=== PATIENT | female | born 1950 | race Hispanic/Latino ===

== ENCOUNTER 2019-02-17 12:24 | Inpatient (IN) | payer MEDICARE, OTHER ==
--- NOTE | 2019-02-17 12:29 | Event Note ---
ED Screening Note ED Screening Note: TO ER APPROX 1225 DIFFICULTY WORD FINDING LAST KNOWN NORMAL THIS AM- SHE GOT UP GOT DRESSED/BATHED ETC ALONE DAZED AND STARRING WHEN ASKED QUESTION SHE LOOKS IF SHE DOES NOT UNDERSTAND SUBTLE L SIDED FACIAL DROOP AMS LIVES WITH FAMILY PMH COPD ON 3 L NC AT HOME This initial assessment/diagnostic orders/clinical plan/treatment(s) is/are subject to change based on patients health status, clinical progression and re- assessment by fellow clinical providers in the ED. Further treatment and workup at subsequent clinical providers discretion. Patient/guardian urged not to elope from the ED as their condition may be serious if not clinically assessed and managed. Initial orders include:
--- NOTE | 2019-02-17 12:33 | Emergency Department Report ---
ED Neuro Deficit HPI - General Chief Complaint: Neuro Symptoms/Deficit Stated Complaint: POSS CVA Time Seen by Provider: 02/17/19 12:26 Source: patient Mode of arrival: Ambulatory Limitations: Other - History of Present Illness Initial Comments: 02/17/19 12:07 and is a 68-year-old female that presents emergency room with complaints of confusion and difficulty speaking and finding the words.. Patient is complaining of trouble talking and finding the words. Patient is also complaining of generalized weakness. Patient states she is drooling from her right face. Last known well time was approximately one hour ago. Patient at this time IS a&o 3. Sister is at bedside and states that the patient was riding in her car and was not on her oxygen when the patient is on home oxygen 3 L. -: Sudden Location: speech, right face Presenting Symptoms: Present: Facial Droop/Numbness, Unable to Speak Clearly, Altered Mental Status History of same: No Place: outdoors Severity: severe Quality: weak Improves With: none Worsens With: none On Anticoagulants: No Context: sudden onset Associated Symptoms: confusion, malise, shortness of breath, weakness. denies: chest pain, cough, diaphoresis, fever/chills, headaches, loss of appetite, nausea/vomiting, vertigo, seizures, syncope Treatments Prior to Arrival: oxygen - Related Data Allergies/Adverse Reactions: Allergies Allergy/AdvReac Type Severity Reaction Status Date / Time No Known Allergies Allergy Verified 02/17/19 12:25 ED Review of Systems ROS: Stated complaint: POSS CVA Other details as noted in HPI Constitutional: denies: chills, fever Eyes: denies: eye pain, eye discharge, vision change ENT: denies: ear pain, throat pain Respiratory: denies: cough, shortness of breath, wheezing Cardiovascular: denies: chest pain, palpitations Endocrine: no symptoms reported Gastrointestinal: denies: abdominal pain, nausea, vomiting, diarrhea Genitourinary: denies: urgency, dysuria, discharge Musculoskeletal: denies: back pain, joint swelling, arthralgia Skin: denies: rash, lesions Neurological: denies: headache, weakness, paresthesias Psychiatric: denies: anxiety, depression Hematological/Lymphatic: denies: easy bleeding, easy bruising ED Past Medical Hx - Past Medical History Previous Medical History?: Yes Hx Hypertension: Yes Hx Heart Attack/AMI: No Hx Congestive Heart Failure: No Hx Diabetes: No Hx Deep Vein Thrombosis: No Hx Renal Disease: No Hx COPD: Yes (on home O2, emphysema) Additional medical history: HOME 02 - Surgical History Past Surgical History?: No - Family History Family history: no significant - Social History Smoking Status: Former Smoker Substance Use Type: None ED Neuro Physical Exam - General Limitations: No Limitations, Other General appearance: alert, in no apparent distress Suspected Stroke: No - Head Head exam: Present: atraumatic, normocephalic - Eye Eye exam: Present: normal appearance - ENT ENT exam: Present: mucous membranes moist - Neck Neck exam: Present: normal inspection - Respiratory Respiratory exam: Present: normal lung sounds bilaterally. Absent: respiratory distress - Cardiovascular Cardiovascular Exam: Present: regular rate, normal rhythm. Absent: systolic murmur, diastolic murmur, rubs, gallop - GI/Abdominal GI/Abdominal exam: Present: soft, normal bowel sounds. Absent: distended, tenderness, guarding - Rectal Rectal exam: Present: deferred - Extremities Exam Extremities exam: Present: normal inspection - Back Exam Back exam: Present: normal inspection - Neurological Exam Neurological exam: Present: alert, oriented X3 - NIHSS Assessment Interval: Baseline 1a. Level of Consciousness: alert/keenly responsive 1b. LOC Questions: answers both correctly 1c. LOC Commands: performs tasks correctly 2. Best Gaze: normal 3. Visual: no visual loss 4. Facial Palsy: normal symmetrical movement 5b. Motor Arm Right: no drift 5a. Motor Arm Left: no drift 6a. Motor Leg Left: no drift 6b. Motor Leg Right: no drift 7. Limb Ataxia: absent 8. Sensory: normal 9. Best Language: no aphasia 10. Dysarthria: normal 11. Extinction/Inattention: no abnormality Total Score: 0 Stroke Severity: No Stroke Symptoms - Psychiatric Psychiatric exam: Present: normal affect, normal mood - Skin Skin exam: Present: warm, dry, intact, normal color. Absent: rash ED Course Vital Signs 02/17/19 02/17/19 02/17/19 12:43 12:45 12:50 Temperature 97.6 F Pulse Rate 74 Respiratory 16 Rate Blood Pressure 99/51 O2 Sat by Pulse 92 94 Oximetry 02/17/19 02/17/19 02/17/19 13:01 13:15 13:33 Temperature Pulse Rate 83 84 75 Respiratory 22 22 23 Rate Blood Pressure 99/51 118/55 O2 Sat by Pulse 95 97 93 Oximetry 02/17/19 02/17/19 02/17/19 13:45 14:00 14:15 Temperature Pulse Rate 82 85 83 Respiratory 21 22 21 Rate Blood Pressure 96/44 101/56 114/58 O2 Sat by Pulse 93 94 93 Oximetry 02/17/19 02/17/19 02/17/19 14:30 14:45 15:00 Temperature Pulse Rate 83 77 75 Respiratory 24 22 20 Rate Blood Pressure 119/54 123/53 123/53 O2 Sat by Pulse 93 97 95 Oximetry 02/17/19 02/17/19 02/17/19 15:15 15:30 15:45 Temperature Pulse Rate 78 77 83 Respiratory 20 21 21 Rate Blood Pressure 140/65 154/63 171/73 O2 Sat by Pulse 94 95 93 Oximetry 02/17/19 02/17/19 16:00 16:15 Temperature Pulse Rate 83 84 Respiratory 22 21 Rate Blood Pressure 170/70 158/75 O2 Sat by Pulse 93 93 Oximetry - Reevaluation(s) Reevaluation #1: Initial evaluation done. NIH is normal. Patient placed on oxygen. Patient also registered nurse cardiac telemetry. 02/17/19 13:01 Discussed all results with patient. Patient will be admitted to the hospitalist service. Patient agrees to plan of care. 02/17/19 16:01 - Consultations Consultation #1: I discussed the case with the neurologist and neurologist does not recommend TPA but recommends further neurologic workup and encephalopathy workup. 02/17/19 12:51 Consultation #2: Hospitalist consulted for admission. Hospitalist to admit patient. Hospitalist to assume care patient. 02/17/19 16:01 - Lab Data Result diagrams: 02/17/19 12:45 02/17/19 14:39 Lab Results 02/17/19 02/17/19 02/17/19 Range/Units 12:45 12:45 12:45 WBC 22.8 H (4.5-11.0) K/mm3 RBC 4.82 (3.65-5.03) M/mm3 Hgb 14.6 H (10.1-14.3) gm/dl Hct 43.7 H (30.3-42.9) % MCV 91 (79-97) fl MCH 30 (28-32) pg MCHC 33 (30-34) % RDW 13.4 (13.2-15.2) % Plt Count 512 H (140-440) K/mm3 Add Manual Diff Complete Total Counted 100 Seg Neuts % (Manual) 88.0 H (40.0-70.0) % Band Neutrophils % 0 % Lymphocytes % (Manual) 11.0 L (13.4-35.0) % Reactive Lymphs % (Man) 0 % Monocytes % (Manual) 1.0 (0.0-7.3) % Eosinophils % (Manual) 0 (0.0-4.3) % Basophils % (Manual) 0 (0.0-1.8) % Metamyelocytes % 0 % Myelocytes % 0 % Promyelocytes % 0 % Blast Cells % 0 % Nucleated RBC % Not Reportable Seg Neutrophils # Man 20.1 H (1.8-7.7) K/mm3 Band Neutrophils # 0.0 K/mm3 Lymphocytes # (Manual) 2.5 (1.2-5.4) K/mm3 Abs React Lymphs (Man) 0.0 K/mm3 Monocytes # (Manual) 0.2 (0.0-0.8) K/mm3 Eosinophils # (Manual) 0.0 (0.0-0.4) K/mm3 Basophils # (Manual) 0.0 (0.0-0.1) K/mm3 Metamyelocytes # 0.0 K/mm3 Myelocytes # 0.0 K/mm3 Promyelocytes # 0.0 K/mm3 Blast Cells # 0.0 K/mm3 WBC Morphology Not Reportable Hypersegmented Neuts Not Reportable Hyposegmented Neuts Not Reportable Hypogranular Neuts Not Reportable Smudge Cells Not Reportable Toxic Granulation Not Reportable Toxic Vacuolation Not Reportable Dohle Bodies Not Reportable Pelger-Huet Anomaly Not Reportable Anh Rods Not Reportable Platelet Estimate Consistent w auto Clumped Platelets Not Reportable Plt Clumps, EDTA Not Reportable Large Platelets Not Reportable Giant Platelets Not Reportable Platelet Satelliting Not Reportable Plt Morphology Comment Not Reportable RBC Morphology Normal Dimorphic RBCs Not Reportable Polychromasia Not Reportable Hypochromasia Not Reportable Poikilocytosis Not Reportable Anisocytosis Not Reportable Microcytosis Not Reportable Macrocytosis Not Reportable Spherocytes Not Reportable Pappenheimer Bodies Not Reportable Sickle Cells Not Reportable Target Cells Not Reportable Tear Drop Cells Not Reportable Ovalocytes Not Reportable Helmet Cells Not Reportable [place] Bodies Not Reportable [place] Rings Not Reportable Monserrat Cells Not Reportable Bite Cells Not Reportable Crenated Cell Not Reportable Elliptocytes Not Reportable Acanthocytes (Spur) Not Reportable Rouleaux Not Reportable Hemoglobin C Crystals Not Reportable Schistocytes Not Reportable Malaria parasites Not Reportable Dain Bodies Not Reportable Hem Pathologist Commnt No PT 11.5 L (12.2-14.9) Sec. INR 0.86 L (0.87-1.13) APTT 20.6 L (24.2-36.6) Sec. Thrombin Time 15.3 (15.1-19.6) Sec. Sodium (137-145) mmol/L Potassium (3.6-5.0) mmol/L Chloride (98-107) mmol/L Carbon Dioxide (22-30) mmol/L Anion Gap mmol/L BUN (7-17) mg/dL Creatinine (0.7-1.2) mg/dL Estimated GFR ml/min BUN/Creatinine Ratio % Glucose (65-100) mg/dL Calcium (8.4-10.2) mg/dL Total Bilirubin (0.1-1.2) mg/dL AST (5-40) units/L ALT (7-56) units/L Alkaline Phosphatase (35-129) units/L Total Creatine Kinase 58 (30-135) units/L CK-MB (CK-2) 5.7 H (0.0-4.0) ng/mL CK-MB (CK-2) Rel Index 9.8 H (0-4) Troponin T 0.037 H (0.00-0.029) ng/mL Total Protein (6.3-8.2) g/dL Albumin (3.9-5) g/dL Albumin/Globulin Ratio % 02/17/19 Range/Units 14:39 WBC (4.5-11.0) K/mm3 RBC (3.65-5.03) M/mm3 Hgb (10.1-14.3) gm/dl Hct (30.3-42.9) % MCV (79-97) fl MCH (28-32) pg MCHC (30-34) % RDW (13.2-15.2) % Plt Count (140-440) K/mm3 Add Manual Diff Total Counted Seg Neuts % (Manual) (40.0-70.0) % Band Neutrophils % % Lymphocytes % (Manual) (13.4-35.0) % Reactive Lymphs % (Man) % Monocytes % (Manual) (0.0-7.3) % Eosinophils % (Manual) (0.0-4.3) % Basophils % (Manual) (0.0-1.8) % Metamyelocytes % % Myelocytes % % Promyelocytes % % Blast Cells % % Nucleated RBC % Seg Neutrophils # Man (1.8-7.7) K/mm3 Band Neutrophils # K/mm3 Lymphocytes # (Manual) (1.2-5.4) K/mm3 Abs React Lymphs (Man) K/mm3 Monocytes # (Manual) (0.0-0.8) K/mm3 Eosinophils # (Manual) (0.0-0.4) K/mm3 Basophils # (Manual) (0.0-0.1) K/mm3 Metamyelocytes # K/mm3 Myelocytes # K/mm3 Promyelocytes # K/mm3 Blast Cells # K/mm3 WBC Morphology Hypersegmented Neuts Hyposegmented Neuts Hypogranular Neuts Smudge Cells Toxic Granulation Toxic Vacuolation Dohle Bodies Pelger-Huet Anomaly Anh Rods Platelet Estimate Clumped Platelets Plt Clumps, EDTA Large Platelets Giant Platelets Platelet Satelliting Plt Morphology Comment RBC Morphology Dimorphic RBCs Polychromasia Hypochromasia Poikilocytosis Anisocytosis Microcytosis Macrocytosis Spherocytes Pappenheimer Bodies Sickle Cells Target Cells Tear Drop Cells Ovalocytes Helmet Cells [place] Bodies [place] Rings [place] Cells Bite Cells Crenated Cell Elliptocytes Acanthocytes (Spur) Rouleaux Hemoglobin C Crystals Schistocytes Malaria parasites Dain Bodies Hem Pathologist Commnt PT (12.2-14.9) Sec. INR (0.87-1.13) APTT (24.2-36.6) Sec. Thrombin Time (15.1-19.6) Sec. Sodium 137 (137-145) mmol/L Potassium 4.0 (3.6-5.0) mmol/L Chloride 93.8 L (98-107) mmol/L Carbon Dioxide 31 H (22-30) mmol/L Anion Gap 16 mmol/L BUN 18 H (7-17) mg/dL Creatinine 1.1 (0.7-1.2) mg/dL Estimated GFR 49 ml/min BUN/Creatinine Ratio 16 % Glucose 147 H (65-100) mg/dL Calcium 9.8 (8.4-10.2) mg/dL Total Bilirubin 0.30 (0.1-1.2) mg/dL AST 16 (5-40) units/L ALT 16 (7-56) units/L Alkaline Phosphatase 85 (35-129) units/L Total Creatine Kinase (30-135) units/L CK-MB (CK-2) (0.0-4.0) ng/mL CK-MB (CK-2) Rel Index (0-4) Troponin T (0.00-0.029) ng/mL Total Protein 6.5 (6.3-8.2) g/dL Albumin 3.9 (3.9-5) g/dL Albumin/Globulin Ratio 1.5 % - EKG Data -: EKG Interpreted by Ca EKG shows normal: sinus rhythm, axis, intervals, QRS complexes, ST-T waves Rate: normal - Radiology Data Radiology results: report reviewed CT HEAD WITHOUT CONTRAST: FINDINGS: Images obtained show bilateral prominence of the sulci and ventricles. There are no abnormal intra- or extra-axial blood or fluid collections. There are no focal masses or evidence of mass effect. The barboza white matter differentiation appears within normal limits. Regions of periventricular decreased attenuation are consistent with microangiopathic ischemic disease. The posterior fossa structures including the fourth ventricle, cerebellum, and brainstem appear normal. IMPRESSION: Evidence of atrophy and microangiopathic ischemic disease. No acute intracranial process noted. AP CHEST: HISTORY: Weakness, hypoxia The lungs are mildly hyperinflated with increased interstitial markings. No consolidation, large mass or pleural effusion. No pneumothorax. Heart size is within normal limits. IMPRESSION: No acute cardiopulmonary process is identified. - Medical Decision Making Patient is a 68-year-old female that presents emergency with altered mental status and slurred speech and drooling. Neurologist was consulted immediately upon arrival. Neurologist did not recommend TPA recommends encephalopathy workup. Head CT negative for acute findings. Chest x-ray negative. Patient f ound to have lab own about a stroke include elevated white blood cell count, elevated troponin, acute renal insufficiency. Hospitalist admitted the patient. - Differential Diagnosis encephalopathy. Hypoxia. Confusion. Altered mental status Critical Care Time: Yes Critical care attestation.: If time is entered above; I have spent that time in minutes in the direct care of this critically ill patient, excluding procedure time. Critical Care Time: 45 minutes ED Disposition Clinical Impression: Weakness, Encephalopathy, Hypoxia, Slurred speech, Encephalopathy acute, Elevated troponin, Renal insufficiency Altered mental state Qualifiers: Altered mental status type: unspecified Qualified Code(s): R41.82 - Altered mental status, unspecified Elevated white blood cell count, unspecified Qualifiers: Leukocytosis type: unspecified Qualified Code(s): D72.829 - Elevated white blood cell count, unspecified Disposition: DC-09 OP ADMIT IP TO THIS HOSP Is pt being admited?: Yes Does the pt Need Aspirin: No Condition: Critical Time of Disposition: 16:03
--- NOTE | 2019-02-17 12:47 | Cat Scan Report ---
CT HEAD WITHOUT CONTRAST: HISTORY: Stroke. TECHNIQUE: Sequential CT images without contrast. FINDINGS: Images obtained show bilateral prominence of the sulci and ventricles. There are no abnormal intra- or extra-axial blood or fluid collections. There are no focal masses or evidence of mass effect. The barboza white matter differentiation appears within normal limits. Regions of periventricular decreased attenuation are consistent with microangiopathic ischemic disease. The posterior fossa structures including the fourth ventricle, cerebellum, and brainstem appear normal. IMPRESSION: Evidence of atrophy and microangiopathic ischemic disease. No acute intracranial process noted. These findings were discussed with Dr. Hirsch in the emergency department at 1237 hrs.
--- NOTE | 2019-02-17 12:48 | Emergency Department Report ---
ED Neuro Deficit HPI - General Chief Complaint: Neuro Symptoms/Deficit Stated Complaint: POSS CVA Time Seen by Provider: 02/17/19 12:26 Source: patient Mode of arrival: Ambulatory Limitations: Other - History of Present Illness Initial Comments: [facility] Date of Service: 02/17/19 Impression: Encephalopathy: Patient has some difficult with confusion but no aphasia. No focal deficits on neurologic exam. More likely a metabolic process but possibly TIA or seizure. - - - Not a tpa candidate due to: no focal deficits on exam. Presentation is not suggestive of Large Vessel Occlusive Disease. Thrombectomy would not be recommended. Comments: LKN: 10:00 Door time: 12:24 [employer] contacted: 12:30 [employer] at bedside: 12:32 NIHSS assessment time: 12:38 Recommendations: -ASA -Permissive htn up to 220/120 -Check Hgb A1c and lipid panel -dysphagia screen -Telemetry -Glucose control per primary team, avoid hypo- and hyperglycemia -DVT prophylaxis -PT/OT/Speech Inpatient neurology consultation Inpatient stroke evaluation as per Neurology/ Internal Medicine Discussed with ED MD Please call with questions Jeri Esteban, DO [employer] --------- CC word finding difficulty History of Present Illness 68 yo F who is presenting with trouble talking. She seemed spaced out and she wasn't answering. She was holding onto a door handle and not talking at all. Then she came back around and started answering again. Her sister went to get her oxygen because she has been getting a little spacy. Diagnostic: CT head: no acute process Exam: NIHSS score: 0 Medical Decision Making: - Extensive number of diagnosis or management options are considered above. - Extensive amount of complex data reviewed. - High risk of complication and/or morbidity or mortality are associated with differential diagnostic considerations above. - There may be Uncertain outcome and increased probability of prolonged functional impairment or high probability of severe prolonged functional impairment associated with some of these differential diagnosis. Medical Data Reviewed: 1.Data reviewed include clinical labs, radiology, Medical Tests; 2.Tests results discussed w/performing or interpreting physician; 3.Obtaining/reviewing old medical records; 4.Obtaining case history from another source; 5.Independent review of image, tracing or specimen. Patient was informed the Neurology Consult would happen via TeleHealth consult by way of interactive audio and video telecommunications and consented to receiving care in this manner. - Related Data Allergies/Adverse Reactions: Allergies Allergy/AdvReac Type Severity Reaction Status Date / Time No Known Allergies Allergy Verified 02/17/19 12:25 ED Review of Systems ROS: Stated complaint: POSS CVA Other details as noted in HPI ED Past Medical Hx - Past Medical History Additional medical history: HOME 02 ED Neuro Physical Exam - General Limitations: Other Suspected Stroke: No Critical care attestation.: If time is entered above; I have spent that time in minutes in the direct care of this critically ill patient, excluding procedure time. ED Disposition Clinical Impression: Encephalopathy acute Disposition: DC-09 OP ADMIT IP TO THIS HOSP Is pt being admited?: Yes Condition: Stable
[2019-02-17 12:58] LABS: Hematocrit 43.7 % (30.3-42.9); Hemoglobin 14.6 gm/dl (10.1-14.3); Mean Corpuscular HGB Conc 33 % (30-34); Mean Corpuscular Volume 91 fl (79-97); Platelet Count 512 K/mm3 (140-440); Red Blood Count 4.82 M/mm3 (3.65-5.03); Red Cell Distribution Width 13.4 % (13.2-15.2)
[2019-02-17 13:08] LABS: INR 0.86 (0.87-1.13)
[2019-02-17 13:09] LABS: Partial Thromboplastin Time 20.6 Sec. (24.2-36.6); Thrombin Time 15.3 Sec. (15.1-19.6)
[2019-02-17 13:32] LABS: Basophils % (Manual) 0 % (0.0-1.8); Eosinophils % (Manual) 0 % (0.0-4.3); Total Cells Counted 100
--- NOTE | 2019-02-17 13:32 | XRay Report ---
AP CHEST: HISTORY: Weakness, hypoxia The lungs are mildly hyperinflated with increased interstitial markings. No consolidation, large mass or pleural effusion. No pneumothorax. Heart size is within normal limits. IMPRESSION: No acute cardiopulmonary process is identified.
[2019-02-17 13:33] LABS: Platelet Estimate Consistent w Auto; RBC Morphology Normal
[2019-02-17 13:36] LABS: Creatine Kinase MB 5.7 ng/mL (0.0-4.0)
[2019-02-17 15:29] LABS: Albumin 3.9 g/dL (3.9-5); Calcium 9.8 mg/dL (8.4-10.2)
[2019-02-17] MEDS ORDERED: MAXIPIME/NS 1 GM/100 ML 1 GM/100 ML BAG IV ONE (16:57)
[2019-02-17] MEDS ORDERED: ROCEPHIN IM ONE (17:58)
[2019-02-17 18:06] LABS: Bacteria,Urine 1+ /HPF (Negative); Bilirubin,Urine NEG (Negative); Blood,Urine SM (Negative); Calcium Oxalate Crystals,Urine 3+; Color,Urine Yellow (Yellow); Hyaline Casts,Urine 7 /LPF; Mucus,Urine FEW /HPF; Urobilinogen,Urine < 2.0 mg/dL (<2.0)
[2019-02-17] MEDS ORDERED: MAXIPIME/NS 1 GM/100 ML 1 GM/100 ML BAG IV SCH (20:00)
[2019-02-17] MEDS ORDERED: AMBIEN PO PRN (20:08)
[2019-02-17] MEDS ORDERED: TYLENOL PO PRN (20:08)
[2019-02-17] MEDS ORDERED: SODIUM CHLORIDE FLUSH SYRINGE 10 ML IV PRN (20:08)
[2019-02-17] MEDS ORDERED: REGLAN IV PRN (20:08)
[2019-02-17] MEDS ORDERED: ZOFRAN IV PRN (20:08)
[2019-02-17] MEDS ORDERED: DILAUDID IV PRN (20:08)
[2019-02-17] MEDS ORDERED: HEPARIN 10,000 UNITS/10 ML IV ONE (20:14)
[2019-02-17] MEDS ORDERED: NON-FORMULARY (Simvastatin [Simvastatin] 20 MG) PO SCH (20:15)
[2019-02-17] MEDS ORDERED: HEPARIN/ 0.45% NACL-25,000 UNIT/500 ML 25,000 UNIT/500 ML BAG IV SCH ×2 (21:00)
[2019-02-17 21:52] LABS: Hematocrit 41.4 % (30.3-42.9); Hemoglobin 13.9 gm/dl (10.1-14.3)
[2019-02-17] MEDS ORDERED: NON-FORMULARY (Ipratropium/Albuterol Sulfate [Combivent Respimat] 1 SPRAY) IH SCH (22:00)
[2019-02-17 22:03] LABS: INR 0.88 (0.87-1.13)
[2019-02-17 22:04] LABS: Partial Thromboplastin Time 24.8 Sec. (24.2-36.6)
[2019-02-17] MEDS: PRAVACHOL PO SCH (22:41)
[2019-02-17] MEDS: PEPCID IV SCH (22:41)
[2019-02-17] MEDS: EFFEXOR PO SCH (22:41)
[2019-02-17] MEDS: ZESTRIL PO SCH (22:41)
[2019-02-17] MEDS: SODIUM CHLORIDE FLUSH SYRINGE 10 ML IV SCH (22:42)
[2019-02-17] MEDS: DELTASONE PO SCH (22:42)
[2019-02-17] MEDS: NORVASC PO SCH (22:42)
[2019-02-17] MEDS: NACL 0.9% 1000 ML 1,000 ML IV SCH (22:43)
[2019-02-18 06:01] LABS: Basophils % (Auto) 0.2 % (0.0-1.8); Eosinophils % (Auto) 0.1 % (0.0-4.3); Hematocrit 39.1 % (30.3-42.9); Hemoglobin 12.8 gm/dl (10.1-14.3); Lymphocytes # (Auto) 1.1 K/mm3 (1.2-5.4); Lymphocytes % (Auto) 7.5 % (13.4-35.0); Mean Corpuscular HGB Conc 33 % (30-34); Mean Corpuscular Volume 92 fl (79-97); Monocytes # (Auto) 0.5 K/mm3 (0.0-0.8); Monocytes % (Auto) 3.1 % (0.0-7.3); Platelet Count 385 K/mm3 (140-440); Red Blood Count 4.26 M/mm3 (3.65-5.03); Red Cell Distribution Width 13.5 % (13.2-15.2)
[2019-02-18 06:47] LABS: Alanine Aminotransferase 14 units/L (7-56); Albumin 3.3 g/dL (3.9-5); BUN/Creatinine Ratio 30; Blood Urea Nitrogen 21 mg/dL (7-17); Calcium 8.7 mg/dL (8.4-10.2); Hemolysis Index 9
--- NOTE | 2019-02-18 07:51 | History and Physical Report ---
History of Present Illness Date of examination: 02/17/19 Date of admission: 02/17/19 16:00 Chief complaint: Acute confusion after not wearing oxygen for few hours History of present illness: 68-year-old female presents emergency room with complaints of confusion and difficulty speaking and finding the words.. Patient is complaining of trouble talking and finding the words. Patient is also complaining of generalized weakness. Patient states she is drooling from her right face. Last known well time was approximately one hour ago. Patient at this time IS a&o 3. Sister is at bedside and states that the patient was riding in her car and was not on her oxygen when the patient is on home oxygen 3 L.During my exam patient talking appropriately.Moving all 4 extremities. Past Medical History Previous Medical History?: Yes Hypertension: Yes COPD: Yes (on home O2, ) Surgical History Past Surgical History?: No Family History Family history: no significant Social History Smoking Status: Former Smoker Substance Use Type: None Review of Systems ROS: Stated complaint: POSS CVA Other details as noted in HPI Constitutional: denies: chills, fever Eyes: denies: eye pain, eye discharge, vision change ENT: denies: ear pain, throat pain Respiratory: denies: cough, shortness of breath, wheezing Cardiovascular: denies: chest pain, palpitations Endocrine: no symptoms reported Gastrointestinal: denies: abdominal pain, nausea, vomiting, diarrhea Genitourinary: denies: urgency, dysuria, discharge Musculoskeletal: denies: back pain, joint swelling, arthralgia Skin: denies: rash, lesions Neurological: denies: headache, weakness, paresthesias Psychiatric: denies: anxiety, depression Hematological/Lymphatic: denies: easy bleeding, easy bruising Medications and Allergies Allergies Allergy/AdvReac Type Severity Reaction Status Date / Time No Known Allergies Allergy Verified 02/17/19 12:25 Home Medications Medication Instructions Recorded Confirmed Last Taken Type Amlodipine Besylate [Norvasc] 5 mg PO QDAY 02/17/19 02/17/19 Unknown History Ipratropium/Albuterol Sulfate 1 spray IH QID 02/17/19 02/17/19 Unknown History [Combivent Respimat] Lisinopril [Zestril TAB] 40 mg PO QDAY 02/17/19 02/17/19 Unknown History Simvastatin 20 mg PO QDAY 02/17/19 02/17/19 Unknown History Venlafaxine [Effexor] 150 mg PO QDAY 02/17/19 02/17/19 Unknown History predniSONE [Deltasone] 10 mg PO QDAY 02/17/19 02/17/19 Unknown History Active Meds: Active Medications Acetaminophen (Tylenol) 650 mg PO Q4H PRN PRN Reason: Pain MILD(1-3)/Fever >100.5/[place] Albuterol/Ipratropium (Duoneb *Not For Prn Use*) 1 ampul IH Q6HRT [facility] Amlodipine Besylate (Norvasc) 5 mg PO QDAY [facility] Last Admin: 02/17/19 22:42 Dose: 5 mg Documented by: Famotidine (Pepcid) 20 mg IV BID [facility] Last Admin: 02/17/19 22:41 Dose: 20 mg Documented by: Hydromorphone HCl (Dilaudid) 0.5 mg IV Q3H PRN PRN Reason: Pain , Severe (7-10) Cefepime HCl (Maxipime/Ns 1 Gm/100 Ml) 1 gm in 100 mls @ 200 mls/hr IV ONCE [facility]; Protocol Sodium Chloride (Nacl 0.9% 1000 Ml) 1,000 mls @ 75 mls/hr IV DIRECT [facility] Last Admin: 02/17/19 22:43 Dose: 75 mls/hr Documented by: Heparin Sodium/Sodium Chloride (Heparin/ 0.45% Nacl-25,000 Unit/500 Ml) 25,000 unit in 500 mls @ 20 mls/hr IV TITRATE [facility]; Protocol Last Admin: 02/17/19 22:43 Dose: 1,000 units/hr, 20 mls/hr Documented by: Lisinopril (Zestril) 40 mg PO QDAY [facility] Last Admin: 02/17/19 22:41 Dose: 40 mg Documented by: Metoclopramide HCl (Reglan) 10 mg IV Q6H PRN PRN Reason: Nausea And Vomiting Ondansetron HCl (Zofran) 4 mg IV Q8H PRN PRN Reason: Nausea And Vomiting Pravastatin Sodium (Pravachol) 40 mg PO QHS [facility] Last Admin: 02/17/19 22:41 Dose: 40 mg Documented by: Prednisone (Deltasone) 10 mg PO QDAY [facility] Last Admin: 02/17/19 22:42 Dose: 10 mg Documented by: Sodium Chloride (Sodium Chloride Flush Syringe 10 Ml) 10 ml IV BID [facility] Last Admin: 02/17/19 22:42 Dose: 10 ml Documented by: Sodium Chloride (Sodium Chloride Flush Syringe 10 Ml) 10 ml IV PRN PRN PRN Reason: LINE FLUSH Venlafaxine HCl (Effexor) 150 mg PO QDAY [facility] Last Admin: 02/17/19 22:41 Dose: 150 mg Documented by: Zolpidem Tartrate (Ambien) 5 mg PO QHS PRN PRN Reason: Insomnia Exam - Constitutional Vitals: Temp Pulse Resp BP Pulse Ox 98.8 F 82 16 122/55 98 02/18/19 04:40 02/18/19 04:00 02/18/19 04:40 02/18/19 04:40 02/18/19 04:00 General appearance: Present: no acute distress, well-nourished - EENT Eyes: Present: PERRL ENT: hearing intact, clear oral mucosa - Neck Neck: Present: supple, normal ROM - Respiratory Respiratory effort: normal Respiratory: bilateral: CTA - Cardiovascular Heart rate: 78 Rhythm: regular Heart Sounds: Present: S1 & S2. Absent: rub, click - Extremities Extremities: no ischemia, pulses intact, pulses symmetrical, No edema Peripheral Pulses: within normal limits - Abdominal General gastrointestinal: Present: soft, non-tender, non-distended, normal bowel sounds Female genitourinary: Present: normal - Rectal Rectal Exam: deferred - Integumentary Integumentary: Present: clear, warm, dry - Musculoskeletal Musculoskeletal: gait normal, strength equal bilaterally - Psychiatric Psychiatric: appropriate mood/affect, intact judgment & insight - Neurologic Neurologic: CNII-XII intact, moves all extremities - Allied Health Allied health notes reviewed: nursing, case management Results - Labs CBC & Chem 7: 02/18/19 05:38 02/18/19 05:38 Labs: Laboratory Last Values WBC 15.1 K/mm3 (4.5-11.0) H 02/18/19 05:38 RBC 4.26 M/mm3 (3.65-5.03) 02/18/19 05:38 Hgb 12.8 gm/dl (10.1-14.3) 02/18/19 05:38 Hct 39.1 % (30.3-42.9) 02/18/19 05:38 MCV 92 fl (79-97) 02/18/19 05:38 MCH 30 pg (28-32) 02/18/19 05:38 MCHC 33 % (30-34) 02/18/19 05:38 RDW 13.5 % (13.2-15.2) 02/18/19 05:38 Plt Count 385 K/mm3 (140-440) 02/18/19 05:38 Lymph % (Auto) 7.5 % (13.4-35.0) L 02/18/19 05:38 [place] % (Auto) 3.1 % (0.0-7.3) 02/18/19 05:38 Eos % (Auto) 0.1 % (0.0-4.3) 02/18/19 05:38 Baso % (Auto) 0.2 % (0.0-1.8) 02/18/19 05:38 Lymph # 1.1 K/mm3 (1.2-5.4) L 02/18/19 05:38 [place] # 0.5 K/mm3 (0.0-0.8) 02/18/19 05:38 Eos # 0.0 K/mm3 (0.0-0.4) 02/18/19 05:38 Baso # 0.0 K/mm3 (0.0-0.1) 02/18/19 05:38 Add Manual Diff Complete 02/17/19 12:45 Total Counted 100 02/17/19 12:45 Seg Neutrophils % 89.1 % (40.0-70.0) H 02/18/19 05:38 Seg Neuts % (Manual) 88.0 % (40.0-70.0) H 02/17/19 12:45 0 % 02/17/19 12:45 11.0 % (13.4-35.0) L 02/17/19 12:45 Reactive Lymphs % (Man) 0 % 02/17/19 12:45 1.0 % (0.0-7.3) 02/17/19 12:45 0 % (0.0-4.3) 02/17/19 12:45 0 % (0.0-1.8) 02/17/19 12:45 0 % 02/17/19 12:45 0 % 02/17/19 12:45 0 % 02/17/19 12:45 0 % 02/17/19 12:45 Nucleated RBC % Not Reportable 02/17/19 12:45 Seg Neutrophils # 13.4 K/mm3 (1.8-7.7) H 02/18/19 05:38 Seg Neutrophils # Man 20.1 K/mm3 (1.8-7.7) H 02/17/19 12:45 Band Neutrophils # 0.0 K/mm3 02/17/19 12:45 2.5 K/mm3 (1.2-5.4) 02/17/19 12:45 Abs React Lymphs (Man) 0.0 K/mm3 02/17/19 12:45 0.2 K/mm3 (0.0-0.8) 02/17/19 12:45 0.0 K/mm3 (0.0-0.4) 02/17/19 12:45 0.0 K/mm3 (0.0-0.1) 02/17/19 12:45 0.0 K/mm3 02/17/19 12:45 0.0 K/mm3 02/17/19 12:45 0.0 K/mm3 02/17/19 12:45 Blast Cells # 0.0 K/mm3 02/17/19 12:45 WBC Morphology Not Reportable 02/17/19 12:45 Hypersegmented Neuts Not Reportable 02/17/19 12:45 Hyposegmented Neuts Not Reportable 02/17/19 12:45 Hypogranular Neuts Not Reportable 02/17/19 12:45 Not Reportable 02/17/19 12:45 Not Reportable 02/17/19 12:45 Not Reportable 02/17/19 12:45 Not Reportable 02/17/19 12:45 Not Reportable 02/17/19 12:45 Not Reportable 02/17/19 12:45 Consistent w auto 02/17/19 12:45 Not Reportable 02/17/19 12:45 Plt Clumps, EDTA Not Reportable 02/17/19 12:45 Not Reportable 02/17/19 12:45 Not Reportable 02/17/19 12:45 Not Reportable 02/17/19 12:45 Plt Morphology Comment Not Reportable 02/17/19 12:45 RBC Morphology Normal 02/17/19 12:45 Dimorphic RBCs Not Reportable 02/17/19 12:45 Not Reportable 02/17/19 12:45 Not Reportable 02/17/19 12:45 Not Reportable 02/17/19 12:45 Not Reportable 02/17/19 12:45 Not Reportable 02/17/19 12:45 Not Reportable 02/17/19 12:45 Not Reportable 02/17/19 12:45 Not Reportable 02/17/19 12:45 Not Reportable 02/17/19 12:45 Not Reportable 02/17/19 12:45 Not Reportable 02/17/19 12:45 Not Reportable 02/17/19 12:45 Not Reportable 02/17/19 12:45 Not Reportable 02/17/19 12:45 Not Reportable 02/17/19 12:45 Not Reportable 02/17/19 12:45 Not Reportable 02/17/19 12:45 Not Reportable 02/17/19 12:45 Not Reportable 02/17/19 12:45 Acanthocytes (Spur) Not Reportable 02/17/19 12:45 Rouleaux Not Reportable 02/17/19 12:45 Not Reportable 02/17/19 12:45 Not Reportable 02/17/19 12:45 Not Reportable 02/17/19 12:45 Not Reportable 02/17/19 12:45 Hem Pathologist Commnt No 02/17/19 12:45 PT 11.7 Sec. (12.2-14.9) L 02/17/19 21:44 INR 0.88 (0.87-1.13) 02/17/19 21:44 APTT 24.8 Sec. (24.2-36.6) 02/17/19 21:44 15.3 Sec. (15.1-19.6) 02/17/19 12:45 Heparin Anti-Xa Level 1.20 U.I./ml (0.3-0.7) H 02/18/19 05:38 Sodium 136 mmol/L (137-145) L 02/18/19 05:38 Potassium 3.7 mmol/L (3.6-5.0) 02/18/19 05:38 Chloride 96.8 mmol/L (98-107) L 02/18/19 05:38 Carbon Dioxide 26 mmol/L (22-30) 02/18/19 05:38 17 mmol/L 02/18/19 05:38 BUN 21 mg/dL (7-17) H 02/18/19 05:38 0.7 mg/dL (0.7-1.2) 02/18/19 05:38 Estimated GFR > 60 ml/min 02/18/19 05:38 30 % 02/18/19 05:38 Glucose 122 mg/dL (65-100) H 02/18/19 05:38 5.9 % (4-6) 02/17/19 21:42 Calcium 8.7 mg/dL (8.4-10.2) 02/18/19 05:38 0.20 mg/dL (0.1-1.2) 02/18/19 05:38 AST 13 units/L (5-40) 02/18/19 05:38 ALT 14 units/L (7-56) 02/18/19 05:38 76 units/L (35-129) 02/18/19 05:38 58 units/L (30-135) 02/17/19 12:45 CK-MB (CK-2) 5.7 ng/mL (0.0-4.0) H 02/17/19 12:45 CK-MB (CK-2) Rel Index 9.8 (0-4) H 02/17/19 12:45 < 0.010 ng/mL (0.00-0.029) 02/18/19 05:38 6.2 g/dL (6.3-8.2) L 02/18/19 05:38 3.3 g/dL (3.9-5) L 02/18/19 05:38 1.1 % 02/18/19 05:38 Yellow (Yellow) 02/17/19 17:20 Cloudy (Clear) 02/17/19 17:20 6.0 (5.0-7.0) 02/17/19 17:20 Ur Specific [place] 1.020 (1.003-1.030) 02/17/19 17:20 100 mg/dl mg/dL (Negative) 02/17/19 17:20 Neg mg/dL (Negative) 02/17/19 17:20 Tr mg/dL (Negative) 02/17/19 17:20 Sm (Negative) 02/17/19 17:20 Neg (Negative) 02/17/19 17:20 Neg (Negative) 02/17/19 17:20 < 2.0 mg/dL (<2.0) 02/17/19 17:20 Ur Leukocyte Esterase Tr (Negative) 02/17/19 17:20 5.0 /HPF (0.0-6.0) 02/17/19 17:20 12.0 /HPF (0.0-6.0) 02/17/19 17:20 U Epithel Cells (Auto) 1.0 /HPF (0-13.0) 02/17/19 17:20 1+ /HPF (Negative) 02/17/19 17:20 Calcium Oxalate Crystal 3+ 02/17/19 17:20 Hyaline Casts 7 /LPF 02/17/19 17:20 Few /HPF 02/17/19 17:20 - Imaging and Cardiology EKG: report reviewed Chest x-ray: report reviewed (NAF) CT Scan - head: report reviewed Imaging and Cardiology: Head CT IMPRESSION: Evidence of atrophy and microangiopathic ischemic disease. No acute intracranial process noted. Assessment and Plan Advance Directives: Yes (Full code) VTE prophylaxis?: Chemical Plan of care discussed with patient/family: Yes - Patient Problems (1) Acute respiratory failure Current Visit: Yes Status: Acute Qualifiers: Respiratory failure complication: hypoxia Qualified Code(s): J96.01 - Acute respiratory failure with hypoxia Plan to address problem: Sec to not wearing Oxygen Cont wearing Oxygen (2) Encephalopathy acute Current Visit: Yes Status: Acute Plan to address problem: Secondary to Hypoxia Not wearing O2 for prolged time Patient advised not to do that in future (3) NSTEMI (non-ST elevated myocardial infarction) Current Visit: Yes Status: Acute Plan to address problem: Elevated toponin and CK MB Hypoxia induced?? Will trend the Troponin Cardiology consult requested IV Heparin started for possible NSTEMI (4) Elevated white blood cell count, unspecified Current Visit: Yes Status: Acute Qualifiers: Leukocytosis type: unspecified Qualified Code(s): D72.829 - Elevated white blood cell count, unspecified Plan to address problem: Demargination?? IV Levaquin empirically (5) COPD exacerbation Current Visit: Yes Status: Acute Plan to address problem: Duonebs and IV Levaquin (6) HTN (hypertension) Current Visit: Yes Status: Chronic Qualifiers: Hypertension type: essential hypertension Qualified Code(s): I10 - Essential (primary) hypertension Plan to address problem: Cont antihypertensives (7) DVT prophylaxis Current Visit: Yes Status: Acute Plan to address problem: On Lovenox and GI prophylaxis
[2019-02-18] MEDS ORDERED: DUONEB *Not for PRN Use IH SCH ×2 (08:00→20:30)
[2019-02-18] MEDS: PEPCID IV SCH ×2 (11:13→22:55)
[2019-02-18] MEDS: EFFEXOR PO SCH (11:13)
[2019-02-18] MEDS: NORVASC PO SCH (11:13)
[2019-02-18] MEDS: LEVAQUIN 750MG/150ML 750 MG/150 ML BAG IV SCH (11:14)
[2019-02-18] MEDS: DELTASONE PO SCH (11:14)
[2019-02-18] MEDS: SODIUM CHLORIDE FLUSH SYRINGE 10 ML IV SCH ×2 (11:15→22:55)
[2019-02-18] MEDS: ZESTRIL PO SCH (11:40)
--- NOTE | 2019-02-18 11:41 | Consultation ---
History of Present Illness History of present illness: 68-year-old female that presents emergency room with complaints of confusion and difficulty speaking and finding the words.. Patient is complaining of trouble talking and finding the words. Patient is also complaining of generalized weakness. Patient states she is drooling from her right face. Last known well time was approximately one hour ago prior to admission. Patient is living with her sister. Past History Past Medical History: No medical history ((cannot be obtained because of her mental status.) Medications and Allergies Allergies Allergy/AdvReac Type Severity Reaction Status Date / Time No Known Allergies Allergy Verified 02/17/19 12:25 Home Medications Medication Instructions Recorded Confirmed Last Taken Type Amlodipine Besylate [Norvasc] 5 mg PO QDAY 02/17/19 02/17/19 Unknown History Ipratropium/Albuterol Sulfate 1 spray IH QID 02/17/19 02/17/19 Unknown History [Combivent Respimat] Lisinopril [Zestril TAB] 40 mg PO QDAY 02/17/19 02/17/19 Unknown History Simvastatin 20 mg PO QDAY 02/17/19 02/17/19 Unknown History Venlafaxine [Effexor] 150 mg PO QDAY 02/17/19 02/17/19 Unknown History predniSONE [Deltasone] 10 mg PO QDAY 02/17/19 02/17/19 Unknown History Active Meds: Active Medications Acetaminophen (Tylenol) 650 mg PO Q4H PRN PRN Reason: Pain MILD(1-3)/Fever >100.5/[place] Albuterol/Ipratropium (Duoneb *Not For Prn Use*) 1 ampul IH BIDRT [facility] Amlodipine Besylate (Norvasc) 5 mg PO QDAY [facility] Last Admin: 02/18/19 11:13 Dose: 5 mg Documented by: Famotidine (Pepcid) 20 mg IV BID [facility] Last Admin: 02/18/19 11:13 Dose: 20 mg Documented by: Hydromorphone HCl (Dilaudid) 0.5 mg IV Q3H PRN PRN Reason: Pain , Severe (7-10) Cefepime HCl (Maxipime/Ns 1 Gm/100 Ml) 1 gm in 100 mls @ 200 mls/hr IV ONCE [facility]; Protocol Sodium Chloride (Nacl 0.9% 1000 Ml) 1,000 mls @ 75 mls/hr IV DIRECT [facility] Last Admin: 02/17/19 22:43 Dose: 75 mls/hr Documented by: Heparin Sodium/Sodium Chloride (Heparin/ 0.45% Nacl-25,000 Unit/500 Ml) 25,000 unit in 500 mls @ 20 mls/hr IV TITRATE [facility]; Protocol Last Admin: 02/17/19 22:43 Dose: 1,000 units/hr, 20 mls/hr Documented by: Levofloxacin/Dextrose (Levaquin 750mg/150ml) 750 mg in 150 mls @ 100 mls/hr IV Q24H [facility]; Protocol Last Admin: 02/18/19 11:14 Dose: 100 mls/hr Documented by: Lisinopril (Zestril) 40 mg PO QDAY [facility] Last Admin: 02/17/19 22:41 Dose: 40 mg Documented by: Metoclopramide HCl (Reglan) 10 mg IV Q6H PRN PRN Reason: Nausea And Vomiting Ondansetron HCl (Zofran) 4 mg IV Q8H PRN PRN Reason: Nausea And Vomiting Pravastatin Sodium (Pravachol) 40 mg PO QHS [facility] Last Admin: 02/17/19 22:41 Dose: 40 mg Documented by: Prednisone (Deltasone) 10 mg PO QDAY [facility] Last Admin: 02/18/19 11:14 Dose: 10 mg Documented by: Sodium Chloride (Sodium Chloride Flush Syringe 10 Ml) 10 ml IV BID [facility] Last Admin: 02/18/19 11:15 Dose: 10 ml Documented by: Sodium Chloride (Sodium Chloride Flush Syringe 10 Ml) 10 ml IV PRN PRN PRN Reason: LINE FLUSH Venlafaxine HCl (Effexor) 150 mg PO QDAY [facility] Last Admin: 02/18/19 11:13 Dose: 150 mg Documented by: Zolpidem Tartrate (Ambien) 5 mg PO QHS PRN PRN Reason: Insomnia Review of Systems ROS unobtainable: due to mental status Physical Examination Vital Signs Pulse Ox 92 02/17/19 12:43 General appearance: no acute distress HEENT: Positive: Normocephaly, Mucus Membranes Moist Neck: Positive: neck supple, trachea midline. Negative: thyromegaly, JVD/HJR Cardiac: Positive: Reg Rate and Rhythm. Negative: S3, S4, Audible Murmur Lungs: Positive: clear to auscultation Neuro: Positive: Grossly Intact Abdomen: Positive: Soft, Active Bowel Sounds. Negative: Hepatosplenomegaly Extremities: Present: normal. Absent: edema Results 02/18/19 05:38 02/18/19 05:38 Cardiac Enzymes 02/17/19 02/17/19 02/18/19 Range/Units 12:45 14:39 05:38 AST 16 13 (5-40) units/L CK-MB (CK-2) 5.7 H (0.0-4.0) ng/mL Coagulation 02/17/19 02/17/19 Range/Units 12:45 21:44 PT 11.5 L 11.7 L (12.2-14.9) Sec. INR 0.86 L 0.88 (0.87-1.13) APTT 20.6 L 24.8 (24.2-36.6) Sec. CBC 02/17/19 02/17/19 02/18/19 Range/Units 12:45 21:40 05:38 WBC 22.8 H 15.1 H (4.5-11.0) K/mm3 RBC 4.82 4.26 (3.65-5.03) M/mm3 Hgb 14.6 H 13.9 12.8 (10.1-14.3) gm/dl Hct 43.7 H 41.4 39.1 (30.3-42.9) % Plt Count 512 H 448 H 385 (140-440) K/mm3 Lymph # 1.1 L (1.2-5.4) K/mm3 Ray # 0.5 (0.0-0.8) K/mm3 Eos # 0.0 (0.0-0.4) K/mm3 Baso # 0.0 (0.0-0.1) K/mm3 Comprehensive Metabolic Panel 02/17/19 02/18/19 Range/Units 14:39 05:38 Sodium 137 136 L (137-145) mmol/L Potassium 4.0 3.7 (3.6-5.0) mmol/L Chloride 93.8 L 96.8 L (98-107) mmol/L Carbon Dioxide 31 H 26 (22-30) mmol/L BUN 18 H 21 H (7-17) mg/dL Creatinine 1.1 0.7 (0.7-1.2) mg/dL Glucose 147 H 122 H (65-100) mg/dL Calcium 9.8 8.7 (8.4-10.2) mg/dL AST 16 13 (5-40) units/L ALT 16 14 (7-56) units/L Alkaline Phosphatase 85 76 (35-129) units/L Total Protein 6.5 6.2 L (6.3-8.2) g/dL Albumin 3.9 3.3 L (3.9-5) g/dL - Imaging and Cardiology Echo: pending EKG: image reviewed (sinus rhythm. Nonspecific ST-T changes.) Assessment and Plan Troponin elevation. Non specific. Next 3 troponins are negative.NSTEMI 2 Do not recommend any ischemic workup. Echocardiogram. Possible transient ischemic attack.. History of hypertension and hyperlipidemia.
--- NOTE | 2019-02-18 13:16 | Progress Note ---
Assessment and Plan Assessment and plan: -- Acute hypoxic respiratory failure Patient is home oxygen dependent , Hypoxia Sec to not wearing Oxygen Cont Oxygen, titrate O2 sats more than 90% --Encephalopathy acute/possible TIA Secondary to Hypoxia, Not wearing O2 for prolged time CT scan head negative for acute abnormalities MRI brain, rest of the neuro workup if needed -- NSTEMI (non-ST elevated myocardial infarction) Elevated toponin. Second and third sets of cardiac enzymes negative Cardiology evaluation noted and appreciated No plans of cardiac workup, DC heparin drip --Leukocytosis; probably sepsis. Status related Trending down , follow cultures, Empiric antibiotics -- COPD exacerbation Duonebs and IV Levaquin, and pulmonary evaluation if needed -- HTN (hypertension) Moderate Control, continue antihypertensives When necessary medications -- DVT prophylaxis On Lovenox and GI prophylaxis --Full code Monitor the patient closely and adjust management as needed Plan of care is reviewed with the patient's sister and patient's nurse History Interval history: Patient Seen and examined medical records reviewed Patient feels slightly better No new complaints CT scan no acute abnormality noted Vital signs reviewed Hospitalist Physical - Constitutional Vitals: Temp Pulse Resp BP Pulse Ox 97.5 F L 79 18 154/74 100 02/18/19 08:30 02/18/19 11:40 02/18/19 08:30 02/18/19 11:40 02/18/19 08:30 General appearance: Present: no acute distress, well-nourished, obese - EENT Eyes: Present: PERRL, EOM intact - Neck Neck: Present: supple, normal ROM - Respiratory Respiratory effort: normal Respiratory: bilateral: diminished, negative: rales, rhonchi, wheezing - Cardiovascular Rhythm: regular Heart Sounds: Present: S1 & S2 - Extremities Extremities: no ischemia, No edema - Abdominal General gastrointestinal: soft, non-tender, non-distended, normal bowel sounds - Integumentary Integumentary: Present: clear, warm - Psychiatric Psychiatric: appropriate mood/affect, cooperative - Neurologic Neurologic: moves all extremities Results - Labs CBC & Chem 7: 02/19/19 05:25 02/19/19 05:25 Labs: Laboratory Last Values WBC 15.1 K/mm3 (4.5-11.0) H 02/18/19 05:38 RBC 4.26 M/mm3 (3.65-5.03) 02/18/19 05:38 Hgb 12.8 gm/dl (10.1-14.3) 02/18/19 05:38 Hct 39.1 % (30.3-42.9) 02/18/19 05:38 MCV 92 fl (79-97) 02/18/19 05:38 MCH 30 pg (28-32) 02/18/19 05:38 MCHC 33 % (30-34) 02/18/19 05:38 RDW 13.5 % (13.2-15.2) 02/18/19 05:38 Plt Count 385 K/mm3 (140-440) 02/18/19 05:38 Lymph % (Auto) 7.5 % (13.4-35.0) L 02/18/19 05:38 [place] % (Auto) 3.1 % (0.0-7.3) 02/18/19 05:38 Eos % (Auto) 0.1 % (0.0-4.3) 02/18/19 05:38 Baso % (Auto) 0.2 % (0.0-1.8) 02/18/19 05:38 Lymph # 1.1 K/mm3 (1.2-5.4) L 02/18/19 05:38 [place] # 0.5 K/mm3 (0.0-0.8) 02/18/19 05:38 Eos # 0.0 K/mm3 (0.0-0.4) 02/18/19 05:38 Baso # 0.0 K/mm3 (0.0-0.1) 02/18/19 05:38 Add Manual Diff Complete 02/17/19 12:45 Total Counted 100 02/17/19 12:45 Seg Neutrophils % 89.1 % (40.0-70.0) H 02/18/19 05:38 Seg Neuts % (Manual) 88.0 % (40.0-70.0) H 02/17/19 12:45 0 % 02/17/19 12:45 11.0 % (13.4-35.0) L 02/17/19 12:45 Reactive Lymphs % (Man) 0 % 02/17/19 12:45 1.0 % (0.0-7.3) 02/17/19 12:45 0 % (0.0-4.3) 02/17/19 12:45 0 % (0.0-1.8) 02/17/19 12:45 0 % 02/17/19 12:45 0 % 02/17/19 12:45 0 % 02/17/19 12:45 0 % 02/17/19 12:45 Nucleated RBC % Not Reportable 02/17/19 12:45 Seg Neutrophils # 13.4 K/mm3 (1.8-7.7) H 02/18/19 05:38 Seg Neutrophils # Man 20.1 K/mm3 (1.8-7.7) H 02/17/19 12:45 Band Neutrophils # 0.0 K/mm3 02/17/19 12:45 2.5 K/mm3 (1.2-5.4) 02/17/19 12:45 Abs React Lymphs (Man) 0.0 K/mm3 02/17/19 12:45 0.2 K/mm3 (0.0-0.8) 02/17/19 12:45 0.0 K/mm3 (0.0-0.4) 02/17/19 12:45 0.0 K/mm3 (0.0-0.1) 02/17/19 12:45 0.0 K/mm3 02/17/19 12:45 0.0 K/mm3 02/17/19 12:45 0.0 K/mm3 02/17/19 12:45 Blast Cells # 0.0 K/mm3 02/17/19 12:45 WBC Morphology Not Reportable 02/17/19 12:45 Hypersegmented Neuts Not Reportable 02/17/19 12:45 Hyposegmented Neuts Not Reportable 02/17/19 12:45 Hypogranular Neuts Not Reportable 02/17/19 12:45 Not Reportable 02/17/19 12:45 Not Reportable 02/17/19 12:45 Not Reportable 02/17/19 12:45 Not Reportable 02/17/19 12:45 Not Reportable 02/17/19 12:45 Not Reportable 02/17/19 12:45 Consistent w auto 02/17/19 12:45 Not Reportable 02/17/19 12:45 Plt Clumps, EDTA Not Reportable 02/17/19 12:45 Not Reportable 02/17/19 12:45 Not Reportable 02/17/19 12:45 Not Reportable 02/17/19 12:45 Plt Morphology Comment Not Reportable 02/17/19 12:45 RBC Morphology Normal 02/17/19 12:45 Dimorphic RBCs Not Reportable 02/17/19 12:45 Not Reportable 02/17/19 12:45 Not Reportable 02/17/19 12:45 Not Reportable 02/17/19 12:45 Not Reportable 02/17/19 12:45 Not Reportable 02/17/19 12:45 Not Reportable 02/17/19 12:45 Not Reportable 02/17/19 12:45 Not Reportable 02/17/19 12:45 Not Reportable 02/17/19 12:45 Not Reportable 02/17/19 12:45 Not Reportable 02/17/19 12:45 Not Reportable 02/17/19 12:45 Not Reportable 02/17/19 12:45 Not Reportable 02/17/19 12:45 Not Reportable 02/17/19 12:45 Not Reportable 02/17/19 12:45 Not Reportable 02/17/19 12:45 Not Reportable 02/17/19 12:45 Not Reportable 02/17/19 12:45 Acanthocytes (Spur) Not Reportable 02/17/19 12:45 Rouleaux Not Reportable 02/17/19 12:45 Not Reportable 02/17/19 12:45 Not Reportable 02/17/19 12:45 Not Reportable 02/17/19 12:45 Not Reportable 02/17/19 12:45 Hem Pathologist Commnt No 02/17/19 12:45 PT 11.7 Sec. (12.2-14.9) L 02/17/19 21:44 INR 0.88 (0.87-1.13) 02/17/19 21:44 APTT 24.8 Sec. (24.2-36.6) 02/17/19 21:44 15.3 Sec. (15.1-19.6) 02/17/19 12:45 Heparin Anti-Xa Level 1.20 U.I./ml (0.3-0.7) H 02/18/19 05:38 Sodium 136 mmol/L (137-145) L 02/18/19 05:38 Potassium 3.7 mmol/L (3.6-5.0) 02/18/19 05:38 Chloride 96.8 mmol/L (98-107) L 02/18/19 05:38 Carbon Dioxide 26 mmol/L (22-30) 02/18/19 05:38 17 mmol/L 02/18/19 05:38 BUN 21 mg/dL (7-17) H 02/18/19 05:38 0.7 mg/dL (0.7-1.2) 02/18/19 05:38 Estimated GFR > 60 ml/min 02/18/19 05:38 30 % 02/18/19 05:38 Glucose 122 mg/dL (65-100) H 02/18/19 05:38 5.9 % (4-6) 02/17/19 21:42 Calcium 8.7 mg/dL (8.4-10.2) 02/18/19 05:38 0.20 mg/dL (0.1-1.2) 02/18/19 05:38 AST 13 units/L (5-40) 02/18/19 05:38 ALT 14 units/L (7-56) 02/18/19 05:38 76 units/L (35-129) 02/18/19 05:38 58 units/L (30-135) 02/17/19 12:45 CK-MB (CK-2) 5.7 ng/mL (0.0-4.0) H 02/17/19 12:45 CK-MB (CK-2) Rel Index 9.8 (0-4) H 02/17/19 12:45 < 0.010 ng/mL (0.00-0.029) 02/18/19 08:53 6.2 g/dL (6.3-8.2) L 02/18/19 05:38 3.3 g/dL (3.9-5) L 02/18/19 05:38 1.1 % 02/18/19 05:38 Yellow (Yellow) 02/17/19 17:20 Cloudy (Clear) 02/17/19 17:20 6.0 (5.0-7.0) 02/17/19 17:20 Ur Specific [place] 1.020 (1.003-1.030) 02/17/19 17:20 100 mg/dl mg/dL (Negative) 02/17/19 17:20 Neg mg/dL (Negative) 02/17/19 17:20 Tr mg/dL (Negative) 02/17/19 17:20 Sm (Negative) 02/17/19 17:20 Neg (Negative) 02/17/19 17:20 Neg (Negative) 02/17/19 17:20 < 2.0 mg/dL (<2.0) 02/17/19 17:20 Ur Leukocyte Esterase Tr (Negative) 02/17/19 17:20 5.0 /HPF (0.0-6.0) 02/17/19 17:20 12.0 /HPF (0.0-6.0) 02/17/19 17:20 U Epithel Cells (Auto) 1.0 /HPF (0-13.0) 02/17/19 17:20 1+ /HPF (Negative) 02/17/19 17:20 Calcium Oxalate Crystal 3+ 02/17/19 17:20 Hyaline Casts 7 /LPF 02/17/19 17:20 Few /HPF 02/17/19 17:20 Active Medications - Current Medications Current Medications: Generic Name Dose Route Start Last Admin Trade Name Freq PRN Reason Stop Dose Admin Acetaminophen 650 mg 02/17/19 20:08 Tylenol PO Q4H PRN Pain MILD(1-3)/Fever >100.5/[place] Albuterol/Ipratropium 1 ampul 02/18/19 20:00 Duoneb *Not For Prn Use* IH BIDRT MARAL Amlodipine Besylate 5 mg 02/17/19 21:00 02/18/19 11:13 Norvasc PO 5 mg QDAY MARAL Administration Famotidine 20 mg 02/17/19 22:00 02/18/19 11:13 Pepcid IV 20 mg BID MARAL Administration Hydromorphone HCl 0.5 mg 02/17/19 20:08 Dilaudid IV Q3H PRN Pain , Severe (7-10) Cefepime HCl 1 gm in 100 mls @ 200 mls/hr 02/17/19 20:00 Maxipime/Ns 1 Gm/100 Ml IV ONCE MARAL Protocol Sodium Chloride 1,000 mls @ 75 mls/hr 02/17/19 21:00 02/17/19 22:43 Nacl 0.9% 1000 Ml IV 75 mls/hr DIRECT MARAL Administration Heparin Sodium/Sodium Chloride 25,000 unit in 500 mls @ 20 mls/hr 02/17/19 21:00 02/17/19 22:43 Heparin/ 0.45% Nacl-25,000 Unit/500 Ml IV 1,000 units/hr TITRATE MARAL 20 mls/hr Administration Protocol 1,000 UNITS/HR Levofloxacin/Dextrose 750 mg in 150 mls @ 100 mls/hr 02/18/19 09:00 02/18/19 11:14 Levaquin 750mg/150ml IV 100 mls/hr Q24H MARAL Administration Protocol Lisinopril 40 mg 02/17/19 21:00 02/18/19 11:40 Zestril PO 40 mg QDAY MARAL Administration Metoclopramide HCl 10 mg 02/17/19 20:08 Reglan IV Q6H PRN Nausea And Vomiting Ondansetron HCl 4 mg 02/17/19 20:08 Zofran IV Q8H PRN Nausea And Vomiting Pravastatin Sodium 40 mg 02/17/19 22:00 02/17/19 22:41 Pravachol PO 40 mg QHS MARAL Administration Prednisone 10 mg 02/17/19 21:00 02/18/19 11:14 Deltasone PO 10 mg QDAY MARAL Administration Sodium Chloride 10 ml 02/17/19 22:00 02/18/19 11:15 Sodium Chloride Flush Syringe 10 Ml IV 10 ml BID MARAL Administration Sodium Chloride 10 ml 02/17/19 20:08 Sodium Chloride Flush Syringe 10 Ml IV PRN PRN LINE FLUSH Venlafaxine HCl 150 mg 02/17/19 21:00 02/18/19 11:13 Effexor PO 150 mg QDAY MARAL Administration Zolpidem Tartrate 5 mg 02/17/19 20:08 Ambien PO QHS PRN Insomnia
[2019-02-18] MEDS: NACL 0.9% 1000 ML 1,000 ML IV SCH (14:42)
[2019-02-18] MEDS: DUONEB *Not for PRN Use IH SCH (21:00)
[2019-02-18] MEDS: PRAVACHOL PO SCH (22:55)
[2019-02-19] MEDS: NACL 0.9% 1000 ML 1,000 ML IV SCH ×2 (03:28→19:41)
[2019-02-19 05:53] LABS: Basophils # (Auto) 0.1 K/mm3 (0.0-0.1); Basophils % (Auto) 0.7 % (0.0-1.8); Eosinophils # (Auto) 0.1 K/mm3 (0.0-0.4); Eosinophils % (Auto) 0.8 % (0.0-4.3); Hematocrit 33.9 % (30.3-42.9); Hemoglobin 11.3 gm/dl (10.1-14.3); Lymphocytes # (Auto) 2.2 K/mm3 (1.2-5.4); Lymphocytes % (Auto) 18.7 % (13.4-35.0); Mean Corpuscular HGB Conc 33 % (30-34); Mean Corpuscular Volume 91 fl (79-97); Monocytes # (Auto) 1.1 K/mm3 (0.0-0.8); Monocytes % (Auto) 9.2 % (0.0-7.3); Platelet Count 362 K/mm3 (140-440); Red Blood Count 3.72 M/mm3 (3.65-5.03); Red Cell Distribution Width 13.1 % (13.2-15.2)
[2019-02-19 06:06] LABS: BUN/Creatinine Ratio 24; Blood Urea Nitrogen 17 mg/dL (7-17); Calcium 8.7 mg/dL (8.4-10.2); Hemolysis Index 9
[2019-02-19] MEDS: DUONEB *Not for PRN Use IH SCH ×2 (08:53→21:01)
[2019-02-19] MEDS: NORVASC PO SCH (09:39)
[2019-02-19] MEDS: DELTASONE PO SCH (09:39)
[2019-02-19] MEDS: EFFEXOR PO SCH (09:40)
[2019-02-19] MEDS: LEVAQUIN 750MG/150ML 750 MG/150 ML BAG IV SCH (09:40)
--- NOTE | 2019-02-19 13:02 | Vascular Lab Report ---
PROCEDURE: VL CAROTID DUPLEX BILAT TECHNIQUE: HISTORY: AMS/TIA FINDINGS: Real-time ultrasound of the cervical arterial vasculature was performed using grayscale and color Doppler images. These images demonstrate, on the right, that peak systolic velocity in the common carotid artery was 71 cm/s. In the internal carotid it was also 71 cm/s and in the external carotid 81 cm/s. Flow in the vertebral artery was antegrade at 62 cm/s. The ratio of flow of the internal carotid to the common c arotid was 1.0 which is normal. There is plaque in the proximal internal carotid artery resulting in a short segment estimated 30-40% stenosis. On the left, peak systolic velocity in the common carotid artery was 71 cm/s. In the internal carotid 77 cm/s and in the external carotid 89 cm/s. Flow in the vertebral artery was antegrade at 50 cm/s. The ratio of flow of the internal carotid to the common carotid was 1.1 which is within normal limits . There is some plaque the distal common carotid artery resulting in a short segment estimated 30% st enosis. There is plaque in the proximal internal carotid artery resulting in a short segment estimate d 30% stenosis. IMPRESSION: No stenosis of greater than 50% is seen in the cervical arterial vasculature This document is electronically signed by Luis Pereyra MD., February 19 2019 12:59:41 PM ET
--- NOTE | 2019-02-19 17:11 | Progress Note ---
Assessment and Plan Assessment and plan: -- Acute hypoxic respiratory failure Patient feels better today , saturating well on nasal cannula oxygen Patient is home oxygen dependent ,Hypoxia Sec to not wearing Oxygen Cont Oxygen, titrate O2 sats more than 90% --Encephalopathy acute/possible TIA Secondary to Hypoxia, Not wearing O2 for prolged time Tests: Echocardiogram; EF 45-50% Carotid Doppler; less than 50% stenosis CT head without contrast; atrophy and microangiopathic ischemia, no acute abnormality noted MRI brain; pending study Neurology consult if needed -- NSTEMI (non-ST elevated myocardial infarction) Elevated toponin. Second and third sets of cardiac enzymes negative Cardiology evaluation noted and appreciated No plans of cardiac workup, DC heparin drip --Leukocytosis; probably sepsis. Stress related As well as steroid use ,Trending down , Empiric antibiotic Levaquin Cultures negative to date -- COPD exacerbation Duonebs and IV Levaquin, low dose steroid. pulmonary evaluation if needed -- HTN (hypertension) Moderate Control, continue antihypertensives When necessary medications -- DVT prophylaxis On Lovenox and GI prophylaxis --Full code Monitor the patient closely and adjust management as needed Plan of care is reviewed with the patient and her nurse History Interval history: Patient seen and examined medical records reviewed Patient feels better complaints of generalized weakness Vital signs reviewed Hospitalist Physical - Constitutional Vitals: Temp Pulse Resp BP Pulse Ox 98.0 F 82 18 139/46 100 02/19/19 09:38 02/19/19 08:58 02/19/19 09:38 02/19/19 09:38 02/19/19 08:59 General appearance: Present: no acute distress, well-nourished, obese - EENT Eyes: Present: PERRL, EOM intact - Neck Neck: Present: supple, normal ROM - Respiratory Respiratory effort: normal Respiratory: bilateral: diminished, negative: rales, rhonchi, wheezing - Cardiovascular Rhythm: regular Heart Sounds: Present: S1 & S2 - Extremities Extremities: no ischemia, No edema - Abdominal General gastrointestinal: soft, non-tender, non-distended, normal bowel sounds - Integumentary Integumentary: Present: clear, warm - Psychiatric Psychiatric: appropriate mood/affect, cooperative - Neurologic Neurologic: moves all extremities Results - Labs CBC & Chem 7: 02/19/19 05:25 02/19/19 05:25 Labs: Laboratory Last Values WBC 11.6 K/mm3 (4.5-11.0) H 02/19/19 05:25 RBC 3.72 M/mm3 (3.65-5.03) 02/19/19 05:25 Hgb 11.3 gm/dl (10.1-14.3) 02/19/19 05:25 Hct 33.9 % (30.3-42.9) 02/19/19 05:25 MCV 91 fl (79-97) 02/19/19 05:25 MCH 31 pg (28-32) 02/19/19 05:25 MCHC 33 % (30-34) 02/19/19 05:25 RDW 13.1 % (13.2-15.2) L 02/19/19 05:25 Plt Count 362 K/mm3 (140-440) 02/19/19 05:25 Lymph % (Auto) 18.7 % (13.4-35.0) 02/19/19 05:25 [place] % (Auto) 9.2 % (0.0-7.3) H 02/19/19 05:25 Eos % (Auto) 0.8 % (0.0-4.3) 02/19/19 05:25 Baso % (Auto) 0.7 % (0.0-1.8) 02/19/19 05:25 Lymph # 2.2 K/mm3 (1.2-5.4) 02/19/19 05:25 [place] # 1.1 K/mm3 (0.0-0.8) H 02/19/19 05:25 Eos # 0.1 K/mm3 (0.0-0.4) 02/19/19 05:25 Baso # 0.1 K/mm3 (0.0-0.1) 02/19/19 05:25 Add Manual Diff Complete 02/17/19 12:45 Total Counted 100 02/17/19 12:45 Seg Neutrophils % 70.6 % (40.0-70.0) H 02/19/19 05:25 Seg Neuts % (Manual) 88.0 % (40.0-70.0) H 02/17/19 12:45 0 % 02/17/19 12:45 11.0 % (13.4-35.0) L 02/17/19 12:45 Reactive Lymphs % (Man) 0 % 02/17/19 12:45 1.0 % (0.0-7.3) 02/17/19 12:45 0 % (0.0-4.3) 02/17/19 12:45 0 % (0.0-1.8) 02/17/19 12:45 0 % 02/17/19 12:45 0 % 02/17/19 12:45 0 % 02/17/19 12:45 0 % 02/17/19 12:45 Nucleated RBC % Not Reportable 02/17/19 12:45 Seg Neutrophils # 8.2 K/mm3 (1.8-7.7) H 02/19/19 05:25 Seg Neutrophils # Man 20.1 K/mm3 (1.8-7.7) H 02/17/19 12:45 Band Neutrophils # 0.0 K/mm3 02/17/19 12:45 2.5 K/mm3 (1.2-5.4) 02/17/19 12:45 Abs React Lymphs (Man) 0.0 K/mm3 02/17/19 12:45 0.2 K/mm3 (0.0-0.8) 02/17/19 12:45 0.0 K/mm3 (0.0-0.4) 02/17/19 12:45 0.0 K/mm3 (0.0-0.1) 02/17/19 12:45 0.0 K/mm3 02/17/19 12:45 0.0 K/mm3 02/17/19 12:45 0.0 K/mm3 02/17/19 12:45 Blast Cells # 0.0 K/mm3 02/17/19 12:45 WBC Morphology Not Reportable 02/17/19 12:45 Hypersegmented Neuts Not Reportable 02/17/19 12:45 Hyposegmented Neuts Not Reportable 02/17/19 12:45 Hypogranular Neuts Not Reportable 02/17/19 12:45 Not Reportable 02/17/19 12:45 Not Reportable 02/17/19 12:45 Not Reportable 02/17/19 12:45 Not Reportable 02/17/19 12:45 Not Reportable 02/17/19 12:45 Not Reportable 02/17/19 12:45 Consistent w auto 02/17/19 12:45 Not Reportable 02/17/19 12:45 Plt Clumps, EDTA Not Reportable 02/17/19 12:45 Not Reportable 02/17/19 12:45 Not Reportable 02/17/19 12:45 Not Reportable 02/17/19 12:45 Plt Morphology Comment Not Reportable 02/17/19 12:45 RBC Morphology Normal 02/17/19 12:45 Dimorphic RBCs Not Reportable 02/17/19 12:45 Not Reportable 02/17/19 12:45 Not Reportable 02/17/19 12:45 Not Reportable 02/17/19 12:45 Not Reportable 02/17/19 12:45 Not Reportable 02/17/19 12:45 Not Reportable 02/17/19 12:45 Not Reportable 02/17/19 12:45 Not Reportable 02/17/19 12:45 Not Reportable 02/17/19 12:45 Not Reportable 02/17/19 12:45 Not Reportable 02/17/19 12:45 Not Reportable 02/17/19 12:45 Not Reportable 02/17/19 12:45 Not Reportable 02/17/19 12:45 Not Reportable 02/17/19 12:45 Not Reportable 02/17/19 12:45 Not Reportable 02/17/19 12:45 Not Reportable 02/17/19 12:45 Not Reportable 02/17/19 12:45 Acanthocytes (Spur) Not Reportable 02/17/19 12:45 Rouleaux Not Reportable 02/17/19 12:45 Not Reportable 02/17/19 12:45 Not Reportable 02/17/19 12:45 Not Reportable 02/17/19 12:45 Not Reportable 02/17/19 12:45 Hem Pathologist Commnt No 02/17/19 12:45 PT 11.7 Sec. (12.2-14.9) L 02/17/19 21:44 INR 0.88 (0.87-1.13) 02/17/19 21:44 APTT 24.8 Sec. (24.2-36.6) 02/17/19 21:44 15.3 Sec. (15.1-19.6) 02/17/19 12:45 Heparin Anti-Xa Level 0.10 U.I./ml (0.3-0.7) L 02/18/19 14:01 Sodium 136 mmol/L (137-145) L 02/19/19 05:25 Potassium 3.6 mmol/L (3.6-5.0) 02/19/19 05:25 Chloride 97.5 mmol/L (98-107) L 02/19/19 05:25 Carbon Dioxide 29 mmol/L (22-30) 02/19/19 05:25 13 mmol/L 02/19/19 05:25 BUN 17 mg/dL (7-17) 02/19/19 05:25 0.7 mg/dL (0.7-1.2) 02/19/19 05:25 Estimated GFR > 60 ml/min 02/19/19 05:25 24 % 02/19/19 05:25 Glucose 82 mg/dL (65-100) 02/19/19 05:25 5.9 % (4-6) 02/17/19 21:42 Calcium 8.7 mg/dL (8.4-10.2) 02/19/19 05:25 0.20 mg/dL (0.1-1.2) 02/18/19 05:38 AST 13 units/L (5-40) 02/18/19 05:38 ALT 14 units/L (7-56) 02/18/19 05:38 76 units/L (35-129) 02/18/19 05:38 58 units/L (30-135) 02/17/19 12:45 CK-MB (CK-2) 5.7 ng/mL (0.0-4.0) H 02/17/19 12:45 CK-MB (CK-2) Rel Index 9.8 (0-4) H 02/17/19 12:45 < 0.010 ng/mL (0.00-0.029) 02/18/19 08:53 6.2 g/dL (6.3-8.2) L 02/18/19 05:38 3.3 g/dL (3.9-5) L 02/18/19 05:38 1.1 % 02/18/19 05:38 Yellow (Yellow) 02/17/19 17:20 Cloudy (Clear) 02/17/19 17:20 6.0 (5.0-7.0) 02/17/19 17:20 Ur Specific [place] 1.020 (1.003-1.030) 02/17/19 17:20 100 mg/dl mg/dL (Negative) 02/17/19 17:20 Neg mg/dL (Negative) 02/17/19 17:20 Tr mg/dL (Negative) 02/17/19 17:20 Sm (Negative) 02/17/19 17:20 Neg (Negative) 02/17/19 17:20 Neg (Negative) 02/17/19 17:20 < 2.0 mg/dL (<2.0) 02/17/19 17:20 Ur Leukocyte Esterase Tr (Negative) 02/17/19 17:20 5.0 /HPF (0.0-6.0) 02/17/19 17:20 12.0 /HPF (0.0-6.0) 02/17/19 17:20 U Epithel Cells (Auto) 1.0 /HPF (0-13.0) 02/17/19 17:20 1+ /HPF (Negative) 02/17/19 17:20 Calcium Oxalate Crystal 3+ 02/17/19 17:20 Hyaline Casts 7 /LPF 02/17/19 17:20 Few /HPF 02/17/19 17:20 Active Medications - Current Medications Current Medications: Generic Name Dose Route Start Last Admin Trade Name Freq PRN Reason Stop Dose Admin Acetaminophen 650 mg 02/17/19 20:08 Tylenol PO Q4H PRN Pain MILD(1-3)/Fever >100.5/[place] Albuterol/Ipratropium 1 ampul 02/18/19 20:00 02/19/19 08:53 Duoneb *Not For Prn Use* IH 1 ampul BIDRT MARAL Administration Amlodipine Besylate 5 mg 02/17/19 21:00 02/19/19 09:39 Norvasc PO 5 mg QDAY MARAL Administration Famotidine 20 mg 02/17/19 22:00 02/18/19 22:55 Pepcid IV 20 mg BID MARAL Administration Hydromorphone HCl 0.5 mg 02/17/19 20:08 Dilaudid IV Q3H PRN Pain , Severe (7-10) Cefepime HCl 1 gm in 100 mls @ 200 mls/hr 02/17/19 20:00 Maxipime/Ns 1 Gm/100 Ml IV ONCE MARAL Protocol Sodium Chloride 1,000 mls @ 75 mls/hr 02/17/19 21:00 02/19/19 03:28 Nacl 0.9% 1000 Ml IV 75 mls/hr DIRECT MARAL Administration Levofloxacin/Dextrose 750 mg in 150 mls @ 100 mls/hr 02/18/19 09:00 02/19/19 09:40 Levaquin 750mg/150ml IV 100 mls/hr Q24H MARAL Administration Protocol Lisinopril 40 mg 02/17/19 21:00 02/18/19 11:40 Zestril PO 40 mg QDAY MARAL Administration Metoclopramide HCl 10 mg 02/17/19 20:08 Reglan IV Q6H PRN Nausea And Vomiting Ondansetron HCl 4 mg 02/17/19 20:08 Zofran IV Q8H PRN Nausea And Vomiting Pravastatin Sodium 40 mg 02/17/19 22:00 02/18/19 22:55 Pravachol PO 40 mg QHS MARAL Administration Prednisone 10 mg 02/17/19 21:00 02/19/19 09:39 Deltasone PO 10 mg QDAY MARAL Administration Sodium Chloride 10 ml 02/17/19 22:00 02/18/19 22:55 Sodium Chloride Flush Syringe 10 Ml IV 10 ml BID MARAL Administration Sodium Chloride 10 ml 02/17/19 20:08 Sodium Chloride Flush Syringe 10 Ml IV PRN PRN LINE FLUSH Venlafaxine HCl 150 mg 02/17/19 21:00 02/19/19 09:40 Effexor PO 150 mg QDAY MARAL Administration Zolpidem Tartrate 5 mg 02/17/19 20:08 Ambien PO QHS PRN Insomnia
[2019-02-19] MEDS: PEPCID IV SCH ×2 (17:28→21:20)
--- NOTE | 2019-02-19 18:00 | Progress Note ---
Assessment and Plan Patient is stable from a cardiac standpoint. Continue current cardiac management. We will sign off at this time. Patient has been seen in conjunction with Dr. Casas, who agrees with assessment and plan. - Patient Problems (1) TIA (transient ischemic attack) Current Visit: Yes Status: Suspected (2) Altered mental state Current Visit: Yes Status: Acute Qualifiers: Altered mental status type: unspecified Qualified Code(s): R41.82 - Altered mental status, unspecified (3) Weakness Current Visit: Yes Status: Acute (4) COPD (chronic obstructive pulmonary disease) Current Visit: Yes Status: Chronic (5) Acute respiratory failure Current Visit: Yes Status: Acute Qualifiers: Respiratory failure complication: hypoxia Qualified Code(s): J96.01 - Acute respiratory failure with hypoxia (6) Encephalopathy acute Current Visit: Yes Status: Acute (7) NSTEMI (non-ST elevated myocardial infarction) Current Visit: Yes Status: Acute (8) HTN (hypertension) Current Visit: Yes Status: Chronic Qualifiers: Hypertension type: essential hypertension Qualified Code(s): I10 - Essential (primary) hypertension Subjective Date of service: 02/19/19 Principal diagnosis: Possible CVA Interval history: Patient lying in bed in NAD. No complaints. Echocardiogram on 02/18 found an EF of 45 to 50 percent and calcification of both the papillary muscle heads and mitral annulus. SR in 90s on telemetry. Objective Last Vital Signs Temp 98.0 F 02/19/19 09:38 Pulse 82 02/19/19 08:58 Resp 18 02/19/19 09:38 BP 139/46 02/19/19 09:38 Pulse Ox 100 02/19/19 08:59 - Physical Examination General: No Apparent Distress HEENT: Positive: PERRL, Normocephaly, Mucus Membranes Moist Neck: Positive: neck supple, trachea midline. Negative: thyromegaly, JVD/HJR Cardiac: Positive: Reg Rate and Rhythm Lungs: Positive: clear to auscultation Neuro: Positive: Grossly Intact, Weakness Abdomen: Positive: Unremarkable, Soft, Active Bowel Sounds. Negative: Hepatosplenomegaly /Rectal: Other (Deferred) Skin: Positive: Clear Musculoskeletal: Decreased Range of Motion Extremities: Present: normal. Absent: edema - Labs and Meds CBC 02/19/19 Range/Units 05:25 WBC 11.6 H (4.5-11.0) K/mm3 RBC 3.72 (3.65-5.03) M/mm3 Hgb 11.3 (10.1-14.3) gm/dl Hct 33.9 (30.3-42.9) % Plt Count 362 (140-440) K/mm3 Lymph # 2.2 (1.2-5.4) K/mm3 [place] # 1.1 H (0.0-0.8) K/mm3 Eos # 0.1 (0.0-0.4) K/mm3 Baso # 0.1 (0.0-0.1) K/mm3 Comprehensive Metabolic Panel 02/19/19 Range/Units 05:25 Sodium 136 L (137-145) mmol/L Potassium 3.6 (3.6-5.0) mmol/L Chloride 97.5 L (98-107) mmol/L Carbon Dioxide 29 (22-30) mmol/L BUN 17 (7-17) mg/dL Creatinine 0.7 (0.7-1.2) mg/dL Glucose 82 (65-100) mg/dL Calcium 8.7 (8.4-10.2) mg/dL - Imaging and Cardiology EKG: image reviewed (sinus rhythm. Nonspecific ST-T changes.) Echo: pending, report reviewed (EF of 45-50%, calcified mitral annulus and papillary muscle heads)
[2019-02-19] MEDS: PRAVACHOL PO SCH (21:20)
[2019-02-19] MEDS: SODIUM CHLORIDE FLUSH SYRINGE 10 ML IV SCH (21:20)
[2019-02-20 07:43] LABS: Basophils # (Auto) 0.1 K/mm3 (0.0-0.1); Basophils % (Auto) 0.6 % (0.0-1.8); Eosinophils # (Auto) 0.1 K/mm3 (0.0-0.4); Eosinophils % (Auto) 1.3 % (0.0-4.3); Hematocrit 37.4 % (30.3-42.9); Hemoglobin 12.6 gm/dl (10.1-14.3); Lymphocytes # (Auto) 1.8 K/mm3 (1.2-5.4); Lymphocytes % (Auto) 17.3 % (13.4-35.0); Mean Corpuscular HGB Conc 34 % (30-34); Mean Corpuscular Volume 90 fl (79-97); Monocytes # (Auto) 0.9 K/mm3 (0.0-0.8); Monocytes % (Auto) 8.9 % (0.0-7.3); Platelet Count 373 K/mm3 (140-440); Red Blood Count 4.15 M/mm3 (3.65-5.03); Red Cell Distribution Width 13.4 % (13.2-15.2)
[2019-02-20 08:09] LABS: BUN/Creatinine Ratio 13; Blood Urea Nitrogen 8 mg/dL (7-17); Calcium 8.9 mg/dL (8.4-10.2); Hemolysis Index 4
[2019-02-20] MEDS: DUONEB *Not for PRN Use IH SCH ×2 (08:14→20:16)
[2019-02-20] MEDS: EFFEXOR PO SCH (10:20)
[2019-02-20] MEDS: ZESTRIL PO SCH (10:20)
[2019-02-20] MEDS: NORVASC PO SCH (10:20)
[2019-02-20] MEDS: DELTASONE PO SCH (10:20)
[2019-02-20] MEDS: PEPCID IV SCH (10:20)
[2019-02-20] MEDS: LEVAQUIN 750MG/150ML 750 MG/150 ML BAG IV SCH (10:21)
[2019-02-20] MEDS: SODIUM CHLORIDE FLUSH SYRINGE 10 ML IV SCH ×3 (10:21→21:31)
[2019-02-20] MEDS: NACL 0.9% 1000 ML 1,000 ML IV SCH (15:47)
--- NOTE | 2019-02-20 18:17 | Progress Note ---
Assessment and Plan Assessment and plan: -- Acute hypoxic respiratory failure Patient feels better today , saturating well on nasal cannula oxygen Patient is home oxygen dependent ,Hypoxia Sec to not wearing Oxygen Cont Oxygen, titrate O2 sats more than 90% --Encephalopathy acute/possible TIA Secondary to Hypoxia, Not wearing O2 for prolged time Tests: Echocardiogram; EF 45-50% Carotid Doppler; less than 50% stenosis CT head without contrast; atrophy and microangiopathic ischemia, no acute abnormality noted MRI brain; pending study Neurology consult if needed -- NSTEMI (non-ST elevated myocardial infarction) Elevated toponin. Second and third sets of cardiac enzymes negative Cardiology evaluation noted and appreciated No plans of cardiac workup, DC heparin drip --Leukocytosis; probably sepsis. Stress related As well as steroid use ,Trending down , Empiric antibiotic Levaquin Cultures negative to date -- COPD exacerbation Duonebs and IV Levaquin, low dose steroid. pulmonary evaluation if needed -- HTN (hypertension) Moderate Control, continue antihypertensives When necessary medications --Mild malnutrition/hypoalbuminemia; supportive care --Dyslipidemia; continue statin -- DVT prophylaxis On Lovenox and GI prophylaxis --Full code Monitor the patient closely and adjust management as needed Plan of care is reviewed with the patient and her nurse History Interval history: Patient seen and examined medical records Patient has no new complaints Vital signs noted Hospitalist Physical - Constitutional Vitals: Temp Pulse Resp BP Pulse Ox 98.7 F 101 H 18 131/71 93 02/20/19 16:56 02/20/19 16:56 02/20/19 16:56 02/20/19 16:56 02/20/19 16:56 General appearance: Present: no acute distress, well-nourished, obese - EENT Eyes: Present: PERRL, EOM intact - Neck Neck: Present: supple, normal ROM - Respiratory Respiratory effort: normal Respiratory: bilateral: diminished, negative: rales, rhonchi, wheezing - Cardiovascular Rhythm: regular Heart Sounds: Present: S1 & S2 - Extremities Extremities: no ischemia, No edema - Abdominal General gastrointestinal: soft, non-tender, non-distended, normal bowel sounds - Integumentary Integumentary: Present: clear, warm - Psychiatric Psychiatric: appropriate mood/affect, cooperative - Neurologic Neurologic: CNII-XII intact, moves all extremities Results - Labs CBC & Chem 7: 02/21/19 09:29 02/20/19 07:25 Labs: Laboratory Last Values WBC 10.6 K/mm3 (4.5-11.0) 02/20/19 07:25 RBC 4.15 M/mm3 (3.65-5.03) 02/20/19 07:25 Hgb 12.6 gm/dl (10.1-14.3) 02/20/19 07:25 Hct 37.4 % (30.3-42.9) 02/20/19 07:25 MCV 90 fl (79-97) 02/20/19 07:25 MCH 30 pg (28-32) 02/20/19 07:25 MCHC 34 % (30-34) 02/20/19 07:25 RDW 13.4 % (13.2-15.2) 02/20/19 07:25 Plt Count 373 K/mm3 (140-440) 02/20/19 07:25 Lymph % (Auto) 17.3 % (13.4-35.0) 02/20/19 07:25 [place] % (Auto) 8.9 % (0.0-7.3) H 02/20/19 07:25 Eos % (Auto) 1.3 % (0.0-4.3) 02/20/19 07:25 Baso % (Auto) 0.6 % (0.0-1.8) 02/20/19 07:25 Lymph # 1.8 K/mm3 (1.2-5.4) 02/20/19 07:25 [place] # 0.9 K/mm3 (0.0-0.8) H 02/20/19 07:25 Eos # 0.1 K/mm3 (0.0-0.4) 02/20/19 07:25 Baso # 0.1 K/mm3 (0.0-0.1) 02/20/19 07:25 Add Manual Diff Complete 02/17/19 12:45 Total Counted 100 02/17/19 12:45 Seg Neutrophils % 71.9 % (40.0-70.0) H 02/20/19 07:25 Seg Neuts % (Manual) 88.0 % (40.0-70.0) H 02/17/19 12:45 0 % 02/17/19 12:45 11.0 % (13.4-35.0) L 02/17/19 12:45 Reactive Lymphs % (Man) 0 % 02/17/19 12:45 1.0 % (0.0-7.3) 02/17/19 12:45 0 % (0.0-4.3) 02/17/19 12:45 0 % (0.0-1.8) 02/17/19 12:45 0 % 02/17/19 12:45 0 % 02/17/19 12:45 0 % 02/17/19 12:45 0 % 02/17/19 12:45 Nucleated RBC % Not Reportable 02/17/19 12:45 Seg Neutrophils # 7.6 K/mm3 (1.8-7.7) 02/20/19 07:25 Seg Neutrophils # Man 20.1 K/mm3 (1.8-7.7) H 02/17/19 12:45 Band Neutrophils # 0.0 K/mm3 02/17/19 12:45 2.5 K/mm3 (1.2-5.4) 02/17/19 12:45 Abs React Lymphs (Man) 0.0 K/mm3 02/17/19 12:45 0.2 K/mm3 (0.0-0.8) 02/17/19 12:45 0.0 K/mm3 (0.0-0.4) 02/17/19 12:45 0.0 K/mm3 (0.0-0.1) 02/17/19 12:45 0.0 K/mm3 02/17/19 12:45 0.0 K/mm3 02/17/19 12:45 0.0 K/mm3 02/17/19 12:45 Blast Cells # 0.0 K/mm3 02/17/19 12:45 WBC Morphology Not Reportable 02/17/19 12:45 Hypersegmented Neuts Not Reportable 02/17/19 12:45 Hyposegmented Neuts Not Reportable 02/17/19 12:45 Hypogranular Neuts Not Reportable 02/17/19 12:45 Not Reportable 02/17/19 12:45 Not Reportable 02/17/19 12:45 Not Reportable 02/17/19 12:45 Not Reportable 02/17/19 12:45 Not Reportable 02/17/19 12:45 Not Reportable 02/17/19 12:45 Consistent w auto 02/17/19 12:45 Not Reportable 02/17/19 12:45 Plt Clumps, EDTA Not Reportable 02/17/19 12:45 Not Reportable 02/17/19 12:45 Not Reportable 02/17/19 12:45 Not Reportable 02/17/19 12:45 Plt Morphology Comment Not Reportable 02/17/19 12:45 RBC Morphology Normal 02/17/19 12:45 Dimorphic RBCs Not Reportable 02/17/19 12:45 Not Reportable 02/17/19 12:45 Not Reportable 02/17/19 12:45 Not Reportable 02/17/19 12:45 Not Reportable 02/17/19 12:45 Not Reportable 02/17/19 12:45 Not Reportable 02/17/19 12:45 Not Reportable 02/17/19 12:45 Not Reportable 02/17/19 12:45 Not Reportable 02/17/19 12:45 Not Reportable 02/17/19 12:45 Not Reportable 02/17/19 12:45 Not Reportable 02/17/19 12:45 Not Reportable 02/17/19 12:45 Not Reportable 02/17/19 12:45 Not Reportable 02/17/19 12:45 Not Reportable 02/17/19 12:45 Not Reportable 02/17/19 12:45 Not Reportable 02/17/19 12:45 Not Reportable 02/17/19 12:45 Acanthocytes (Spur) Not Reportable 02/17/19 12:45 Rouleaux Not Reportable 02/17/19 12:45 Not Reportable 02/17/19 12:45 Not Reportable 02/17/19 12:45 Not Reportable 02/17/19 12:45 Not Reportable 02/17/19 12:45 Hem Pathologist Commnt No 02/17/19 12:45 PT 11.7 Sec. (12.2-14.9) L 02/17/19 21:44 INR 0.88 (0.87-1.13) 02/17/19 21:44 APTT 24.8 Sec. (24.2-36.6) 02/17/19 21:44 15.3 Sec. (15.1-19.6) 02/17/19 12:45 Heparin Anti-Xa Level 0.10 U.I./ml (0.3-0.7) L 02/18/19 14:01 Sodium 138 mmol/L (137-145) 02/20/19 07:25 Potassium 3.7 mmol/L (3.6-5.0) 02/20/19 07:25 Chloride 98.1 mmol/L (98-107) 02/20/19 07:25 Carbon Dioxide 30 mmol/L (22-30) 02/20/19 07:25 14 mmol/L 02/20/19 07:25 BUN 8 mg/dL (7-17) 02/20/19 07:25 0.6 mg/dL (0.7-1.2) L 02/20/19 07:25 Estimated GFR > 60 ml/min 02/20/19 07:25 13 % 02/20/19 07:25 Glucose 95 mg/dL (65-100) 02/20/19 07:25 5.9 % (4-6) 02/17/19 21:42 Calcium 8.9 mg/dL (8.4-10.2) 02/20/19 07:25 0.20 mg/dL (0.1-1.2) 02/18/19 05:38 AST 13 units/L (5-40) 02/18/19 05:38 ALT 14 units/L (7-56) 02/18/19 05:38 76 units/L (35-129) 02/18/19 05:38 58 units/L (30-135) 02/17/19 12:45 CK-MB (CK-2) 5.7 ng/mL (0.0-4.0) H 02/17/19 12:45 CK-MB (CK-2) Rel Index 9.8 (0-4) H 02/17/19 12:45 < 0.010 ng/mL (0.00-0.029) 02/18/19 08:53 6.2 g/dL (6.3-8.2) L 02/18/19 05:38 3.3 g/dL (3.9-5) L 02/18/19 05:38 1.1 % 02/18/19 05:38 Yellow (Yellow) 02/17/19 17:20 Cloudy (Clear) 02/17/19 17:20 6.0 (5.0-7.0) 02/17/19 17:20 Ur Specific [place] 1.020 (1.003-1.030) 02/17/19 17:20 100 mg/dl mg/dL (Negative) 02/17/19 17:20 Neg mg/dL (Negative) 02/17/19 17:20 Tr mg/dL (Negative) 02/17/19 17:20 Sm (Negative) 02/17/19 17:20 Neg (Negative) 02/17/19 17:20 Neg (Negative) 02/17/19 17:20 < 2.0 mg/dL (<2.0) 02/17/19 17:20 Ur Leukocyte Esterase Tr (Negative) 02/17/19 17:20 5.0 /HPF (0.0-6.0) 02/17/19 17:20 12.0 /HPF (0.0-6.0) 02/17/19 17:20 U Epithel Cells (Auto) 1.0 /HPF (0-13.0) 02/17/19 17:20 1+ /HPF (Negative) 02/17/19 17:20 Calcium Oxalate Crystal 3+ 02/17/19 17:20 Hyaline Casts 7 /LPF 02/17/19 17:20 Few /HPF 02/17/19 17:20 Active Medications - Current Medications Current Medications: Generic Name Dose Route Start Last Admin Trade Name Freq PRN Reason Stop Dose Admin Acetaminophen 650 mg 02/17/19 20:08 Tylenol PO Q4H PRN Pain MILD(1-3)/Fever >100.5/[place]ALL Albuterol/Ipratropium 1 ampul 02/18/19 20:00 02/20/19 08:14 Duoneb *Not For Prn Use* IH 1 ampul BIDRT MARAL Administration Amlodipine Besylate 5 mg 02/17/19 21:00 02/20/19 10:20 Norvasc PO 5 mg QDAY MARAL Administration Famotidine 20 mg 02/20/19 22:00 Pepcid PO BID MARAL Hydromorphone HCl 0.5 mg 02/17/19 20:08 Dilaudid IV Q3H PRN Pain , Severe (7-10) Sodium Chloride 1,000 mls @ 75 mls/hr 02/17/19 21:00 02/20/19 15:47 Nacl 0.9% 1000 Ml IV 75 mls/hr DIRECT MARAL Administration Levofloxacin/Dextrose 750 mg in 150 mls @ 100 mls/hr 02/18/19 09:00 02/20/19 10:21 Levaquin 750mg/150ml IV 100 mls/hr Q24H MARAL Administration Protocol Lisinopril 40 mg 02/17/19 21:00 02/20/19 10:20 Zestril PO 40 mg QDAY MARAL Administration Metoclopramide HCl 10 mg 02/17/19 20:08 Reglan IV Q6H PRN Nausea And Vomiting Ondansetron HCl 4 mg 02/17/19 20:08 Zofran IV Q8H PRN Nausea And Vomiting Pravastatin Sodium 40 mg 02/17/19 22:00 02/19/19 21:20 Pravachol PO 40 mg QHS MARAL Administration Prednisone 10 mg 02/17/19 21:00 02/20/19 10:20 Deltasone PO 10 mg QDAY MARAL Administration Sodium Chloride 10 ml 02/17/19 22:00 02/20/19 15:47 Sodium Chloride Flush Syringe 10 Ml IV 10 ml BID MARAL Administration Sodium Chloride 10 ml 02/17/19 20:08 Sodium Chloride Flush Syringe 10 Ml IV PRN PRN LINE FLUSH Venlafaxine HCl 150 mg 02/17/19 21:00 02/20/19 10:20 Effexor PO 150 mg QDAY MARAL Administration Zolpidem Tartrate 5 mg 02/17/19 20:08 Ambien PO QHS PRN Insomnia
[2019-02-20] MEDS: PEPCID PO SCH (21:31)
[2019-02-20] MEDS: PRAVACHOL PO SCH (21:32)
--- NOTE | 2019-02-21 09:24 | Magnetic Resonance Report ---
MRI OF THE BRAIN WITHOUT CONTRAST: HISTORY: CVA PROCEDURE: Multiplanar, multisequence MR imaging of the brain without IV contrast was performed. FINDINGS: Compared to the CT head dated 02/17/19. MRI also demonstrates mild diffuse cortical volume loss and moderate nonspecific chronic white matter changes. No evidence for acute ischemia, hemorrhage or mass. No chronic infarct or extra-axial fluid collection. The midline structures are central. The basal cisterns are patent. Normal ventricular size. The orbital cavities and sella turcica demonstrate no abnormality. The visualized paranasal sinuses and mastoid air cells are well aerated. IMPRESSION: Moderate volume loss and chronic white matter changes. No acute intracranial process identified.
[2019-02-21 09:47] LABS: Hematocrit 40.2 % (30.3-42.9); Hemoglobin 13.3 gm/dl (10.1-14.3)
[2019-02-21] MEDS: LEVAQUIN 750MG/150ML 750 MG/150 ML BAG IV SCH (09:54)
[2019-02-21 09:56] VITALS: BP 162/83
[2019-02-21] MEDS: NORVASC PO SCH (09:56)
[2019-02-21] MEDS: DELTASONE PO SCH (09:56)
[2019-02-21] MEDS: EFFEXOR PO SCH (09:56)
[2019-02-21] MEDS: PEPCID PO SCH (09:57)
[2019-02-21] MEDS: SODIUM CHLORIDE FLUSH SYRINGE 10 ML IV SCH (09:57)
[2019-02-21] MEDS: ZESTRIL PO SCH (09:57)
[2019-02-21] MEDS: DUONEB *Not for PRN Use IH SCH (10:06)
--- NOTE | 2019-02-21 12:40 | Discharge Summary ---
Providers - Providers Date of Admission: 02/17/19 16:00 Date of discharge: 02/21/19 Attending physician: NAM JUAREZ 02/17/19 20:08 Consult to Physician [CONS] Routine Comment: Consulting Provider: BEV PINO Physician Instructions: Reason For Exam: NSTEMI 02/21/19 10:28 Physical Therapy Evaluation and Treat [CONS] Routine Comment: Reason For Exam: evaluate the need for home PT Primary care physician: ELSA HAYS Hospitalization Reason for admission: Slurred speech and gen weakness Condition: Fair Pertinent studies: Tests: Echocardiogram; EF 45-50% Carotid Doppler; less than 50% stenosis CT head without contrast; atrophy and microangiopathic ischemia, no acute abnormality noted MRI brain; volume loss,chronic changes,no acute abnormality Hospital course: 68-year-old female presents emergency room with complaints of confusion and difficulty speaking and finding the words.. Patient is complaining of trouble talking and finding the words. Patient is also complaining of generalized weakness. Patient states she is drooling from her right face. Last known well time was approximately one hour ago. Patient at this time IS a&o 3. Sister is at bedside and states that the patient was riding in her car and was not on her oxygen when the patient is on home oxygen 3 L.During my exam patient talking appropriately.Moving all 4 extremities.. Patient was evaluated by Neurologist in ED,Not a candidate for TPA. Has extensive neuro w/u negative,Probably the pts symptoms due to TIA.CVA ruled out Placed on ASA and statin,,received PT/OT,Evaluated by cardiology,hemodynamically and clinically stable to discharge home with home health.Stable at discharge Dischrge Diagnosis: -- Acute hypoxic respiratory failure Patient feels better today , saturating well on nasal cannula oxygen Patient is home oxygen dependent ,Hypoxia Sec to not wearing Oxygen Cont Oxygen, titrate O2 sats more than 90% --Encephalopathy acute/possible TIA Secondary to Hypoxia, Not wearing O2 for prolged time Tests: Echocardiogram; EF 45-50% Carotid Doppler; less than 50% stenosis CT head without contrast; atrophy and microangiopathic ischemia, no acute abnormality noted MRI brain; no acute abnormality Neurology consult if needed -- NSTEMI (non-ST elevated myocardial infarction) Elevated toponin. Second and third sets of cardiac enzymes negative Cardiology evaluation noted and appreciated No plans of cardiac workup, DC heparin drip --Leukocytosis; probably sepsis. Stress related As well as steroid use ,Trending down , Empiric antibiotic Levaquin Cultures negative to date -- COPD exacerbation Duonebs and IV Levaquin, low dose steroid. pulmonary evaluation if needed -- HTN (hypertension) Moderate Control, continue antihypertensives When necessary medications --Mild malnutrition/hypoalbuminemia; supportive care --Dyslipidemia; continue statin -- DVT prophylaxis On Lovenox and GI prophylaxis --Full code Monitor the patient closely and adjust management as needed Plan of care is reviewed with the patient and her nurse Disposition: [id number] HOME UNDER HOME [facility] Time spent for discharge: 32 min Core Measure Documentation - Palliative Care Palliative Care/ Comfort Measures: Not Applicable - Core Measures Any of the following diagnoses?: none Exam - Constitutional Vitals: Temp Pulse Resp BP Pulse Ox 97.5 F L 90 20 162/83 98 02/21/19 08:05 02/21/19 10:13 02/21/19 10:13 02/21/19 09:57 02/21/19 10:12 General appearance: Present: no acute distress, well-nourished - EENT Eyes: Present: PERRL, EOM intact - Neck Neck: Present: supple, normal ROM - Respiratory Respiratory effort: normal Respiratory: bilateral: diminished, negative: rales, rhonchi, wheezing - Cardiovascular Rhythm: regular Heart Sounds: Present: S1 & S2 - Extremities Extremities: no ischemia, No edema - Abdominal General gastrointestinal: Present: soft, non-tender, non-distended, normal bowel sounds - Integumentary Integumentary: Present: clear, warm - Musculoskeletal Musculoskeletal: strength equal bilaterally - Psychiatric Psychiatric: appropriate mood/affect, cooperative - Neurologic Neurologic: CNII-XII intact, moves all extremities Plan Activity: advance as tolerated, fall precautions Diet: other (cardiac diet) Special Instructions: physical therapy Additional Instructions: Fall precautions. Home physical therapy Follow up with: JUAN DANIEL WALDROP MD [Referring] - 3-5 Days EDWIN ROBBINS MD [Staff Physician] - 7 Days Prescriptions: Aspirin EC 81 mg PO QDAY #30 tablet. ALBUTEROL Inhaler (OR & NICU) [ProAir HFA Inhaler] 2 puff IH QID PRN #1 inhalation PRN Reason: Shortness Of Breath Simvastatin 20 mg PO QDAY #30 tablet
[2019-02-23] MEDS ORDERED: LEVAQUIN 750MG/150ML 750 MG/150 ML BAG IV SCH (10:00)
== END 2019-02-21 16:59 | disposition home health service (06) | DRG 280 ==
LOC: ED 12:24 → 4A 16:00
PROVIDERS: ADMIT Internal Medicine; ATTEND Internal Medicine
DX: I21.4 Non-ST elevation (NSTEMI) myocardial infarction (principal); J96.01 Acute respiratory failure with hypoxia; G93.40 Encephalopathy, unspecified; J44.1 Chronic obstructive pulmonary disease with (acute) exacerbation; E44.1 Mild protein-calorie malnutrition; G45.9 Transient cerebral ischemic attack, unspecified; E78.5 Hyperlipidemia, unspecified; I10 Essential (primary) hypertension; Z99.81 Dependence on supplemental oxygen; Z68.20 Body mass index [BMI] 20.0-20.9, adult
CPT/HCPCS: 36415; 70450; 70551; 71045; 80048; 80053; 81001; 82550; 82553; 82962; 83036; 84484; 85007; 85014; 85018; 85025; 85049; 85520; 85610; 85670; 85730; 87086; 93005; 93010; 93306; 93880; 94640; 94760; 96365; G0378; A9270-GY; J0692; J0696; J1644; J1956; J7030; J7512